=== PATIENT | male | born 1950 | race Caucasian/White ===

== ENCOUNTER 2017-10-02 18:58 | Inpatient (IN) | payer MEDICARE, OTHER ==
[2017-10-02] MEDS: DEXTROSE 5%-0.9% NACL 1,000 ML IV (20:45)
[2017-10-02] MEDS ORDERED: ALBUMIN HUMAN 25% 100 ML IVPB (22:30)
[2017-10-02] MEDS ORDERED: ACETAMINOPHEN 650 MG SUPP PR (22:30)
[2017-10-02] MEDS ORDERED: ACETAMINOPHEN 650MG/20.3ML CUP PEG (22:30)
[2017-10-02] MEDS: SENNA TAB GTB (22:54)
[2017-10-02] MEDS ORDERED: ONDANSETRON 4 MG INJ IV (23:00)
[2017-10-02] MEDS ORDERED: VANCOMYCIN IV PER PHARMACY XX (23:00)
[2017-10-02] MEDS ORDERED: NYSTATIN 30 GM POWDER BTL TOP (23:00)
[2017-10-02 23:23] LABS: ADD MAN DIFF? NO
[2017-10-02 23:24] LABS: WHITE BLOOD COUNT 9.2 10^3/ul (4.8-10.8)
[2017-10-02 23:24] LABS: BASOPHILS % 0.4 % (0.0-2.0); EOSINOPHILS # 0.5 10^3/ul (0.0-0.5); EOSINOPHILS % 5.1 % (0.0-7.0); HEMATOCRIT 24.9 % (42.0-52.0); HEMOGLOBIN 7.7 g/dl (14.0-18.0); LYMPHOCYTES # 0.9 10^3/ul (0.8-2.9); LYMPHOCYTES % 9.7 % (15.0-51.0); MEAN CORPUSCULAR HEMOGLOBIN 29.8 pg (29.0-33.0); MEAN CORPUSCULAR HGB CONC 30.9 g/dl (32.0-37.0); MEAN CORPUSCULAR VOLUME 96.5 fl (82.0-101.0); MEAN PLATELET VOLUME 9.9 fl (7.4-10.4); MONOCYTE # 0.7 10^3/ul (0.3-0.9); MONOCYTES % 7.1 % (0.0-11.0); NEUTROPHILS % 76.7 % (39.0-77.0); PLATELET COUNT 156 10^3/UL (140-415); RED BLOOD COUNT 2.58 10^6/ul (4.70-6.10); RED CELL DISTRIBUTION WIDTH 19.8 % (11.5-14.5)
[2017-10-02] MEDS ORDERED: HYDROCODONE/APAP (5/325) TAB GTB (23:30)
[2017-10-02] MEDS: QUETIAPINE 25 MG TAB GTB (23:30)
[2017-10-02] MEDS: NYSTATIN 30 GM POWDER BTL TOP ×3 (23:30)
[2017-10-03] MEDS: MIDODRINE 5 MG TAB GTB ×4 (00:28→21:50)
[2017-10-03] MEDS: METOCLOPRAMIDE 10 MG INJ IV ×4 (01:19→18:00)
[2017-10-03 02:00] LABS: IMMEDIATE SPIN CROSSMATCH 1 1
[2017-10-03 03:35] LABS: Allen Test ACCEPTAB; Arterial Base Excess -4.9 mmol/L (-3.0-3); Arterial Blood Gas Oxygen Sat 69.1 mmHG (95.0-98.0); Arterial COHb 1.4 % (0.0-3.0); Arterial Fraction of Oxyhgb 67.9 % (93.0-99.0); Arterial HCO3 20.9 mmol/L (22.0-26.0); Arterial MetHb 0.4 % (0.0-1.5); Arterial Total Hemglobin 7.2 g/dl (12.0-18.0); Arterial pCO2 41.9 mmhg (35-45); MODE VENT - AC; Site Right Radial
[2017-10-03 05:49] LABS: ADD MAN DIFF? NO
[2017-10-03 06:01] LABS: WHITE BLOOD COUNT 9.2 10^3/ul (4.8-10.8)
[2017-10-03 06:01] LABS: BASOPHIL # 0.1 10^3/ul (0.0-0.1); BASOPHILS % 0.5 % (0.0-2.0); EOSINOPHILS # 0.5 10^3/ul (0.0-0.5); EOSINOPHILS % 5.5 % (0.0-7.0); HEMATOCRIT 26.7 % (42.0-52.0); HEMOGLOBIN 8.4 g/dl (14.0-18.0); LYMPHOCYTES # 1.1 10^3/ul (0.8-2.9); LYMPHOCYTES % 12.2 % (15.0-51.0); MEAN CORPUSCULAR HEMOGLOBIN 29.8 pg (29.0-33.0); MEAN CORPUSCULAR HGB CONC 31.5 g/dl (32.0-37.0); MEAN CORPUSCULAR VOLUME 94.7 fl (82.0-101.0); MEAN PLATELET VOLUME 10.8 fl (7.4-10.4); MONOCYTE # 0.7 10^3/ul (0.3-0.9); MONOCYTES % 7.1 % (0.0-11.0); NEUTROPHIL # 6.8 10^3/ul (1.6-7.5); NEUTROPHILS % 73.5 % (39.0-77.0); PLATELET COUNT 179 10^3/UL (140-415); RED BLOOD COUNT 2.82 10^6/ul (4.70-6.10); RED CELL DISTRIBUTION WIDTH 19.4 % (11.5-14.5)
[2017-10-03] MEDS: PANTOPRAZOLE 40 MG INJ IV ×2 (06:02→18:00)
[2017-10-03] MEDS: ACCU-CHEK XX ×3 (06:05→18:00)
[2017-10-03 06:15] LABS: INR 1.73; PROTIME 20.6 Sec (11.9-14.9); PT RATIO 1.6
[2017-10-03 06:16] LABS: PARTIAL THROMBOPLASTIN TIME 47.5 Sec (25.0-35.0)
[2017-10-03 06:32] LABS: VANCOMYCIN,RANDOM 14.8 ug/ml
[2017-10-03 06:46] LABS: ANION GAP 22 (8-16); BLOOD UREA NITROGEN 66 mg/dl (7-20); CARBON DIOXIDE 25 mmol/L (21-31); CHLORIDE 99 mmol/L (97-110); CREATININE 3.85 mg/dl (0.61-1.24); GLUCOSE 85 mg/dl (70-220); POTASSIUM 4.8 mmol/L (3.5-5.1); SODIUM 141 mmol/L (135-144)
[2017-10-03] MEDS: PEG/ELECTROLYTES 4L BTL GTB (07:35)
[2017-10-03] MEDS: SOD CHLORIDE 0.9% 1,000 ML IV (08:00)
[2017-10-03 08:40] LABS: ALANINE AMINOTRANSFERASE 21 IU/L (13-69); ALBUMIN 3.4 g/dl (3.3-4.9); ALKALINE PHOSPHATASE 82 IU/L (42-121); ASPARTATE AMINO TRANSFERASE 23 IU/L (15-46); BILIRUBIN,INDIRECT 0.1 mg/dl (0-1.1); BILIRUBIN,TOTAL 0.1 mg/dl (0.2-1.3); TOTAL PROTEIN 7.2 g/dl (6.1-8.1)
[2017-10-03] MEDS ORDERED: NYSTATIN 30 GM POWDER BTL TOP (09:00)
[2017-10-03 09:01] LABS: AADO2 Arterial 137.3 mmHg (7.0-24.0); Allen Test ACCEPTAB; Arterial Base Excess -0.7 mmol/L (-3.0-3); Arterial Blood Gas Oxygen Sat 70.6 mmHG (95.0-98.0); Arterial COHb 0.9 % (0.0-3.0); Arterial Fraction of Oxyhgb 69.7 % (93.0-99.0); Arterial HCO3 23.2 mmol/L (22.0-26.0); Arterial MetHb 0.4 % (0.0-1.5); Arterial Total Hemglobin 8.1 g/dl (12.0-18.0); Arterial pCO2 34.7 mmhg (35-45); MODE VENT - AC; Site Right Brachial
[2017-10-03] MEDS: DEXTROSE 5%-0.9% NACL 1,000 ML IV ×2 (10:00→23:02)
[2017-10-03 10:55] LABS: HEMATOCRIT 27.4 % (42.0-52.0); HEMOGLOBIN 8.6 g/dl (14.0-18.0)
[2017-10-03] MEDS: MULTIVIT/CA CARB/B CMPLX/FA TAB GTB (11:00)
[2017-10-03 11:07] LABS: AADO2 Arterial 217.2 mmHg (7.0-24.0); Arterial Base Excess -2.8 mmol/L (-3.0-3); Arterial Blood Gas Oxygen Sat 99.7 mmHG (95.0-98.0); Arterial COHb 0.7 % (0.0-3.0); Arterial Fraction of Oxyhgb 98.6 % (93.0-99.0); Arterial HCO3 21.7 mmol/L (22.0-26.0); Arterial MetHb 0.4 % (0.0-1.5); Arterial Total Hemglobin 8.6 g/dl (12.0-18.0); Arterial pCO2 36.2 mmhg (35-45); MODE VENT - AC; Site A-Line
[2017-10-03] MEDS: DOCUSATE SODIUM 10 MG/ML (10ML CUP) GTB ×3 (11:41→21:00)
[2017-10-03] MEDS: NYSTATIN 30 GM POWDER BTL TOP ×6 (11:43→21:49)
[2017-10-03] MEDS: CEFEPIME HCL IVPB (12:00)
[2017-10-03] MEDS: DEXTROSE 5% IVPB (12:00)
[2017-10-03 12:32] LABS: HEMATOCRIT 28.1 % (42.0-52.0); HEMOGLOBIN 8.8 g/dl (14.0-18.0)
[2017-10-03] MEDS: VANCOMYCIN 1 GM 250 ML IVPB (14:15)
[2017-10-03] MEDS: EPOETIN 10000 UNITS/1 ML INJ (ESRD) SC (18:00)
[2017-10-03] MEDS ORDERED: PENDING SANTYL ORDER FOR WOUND CARE XX (20:00)
[2017-10-03 20:07] LABS: HEMATOCRIT 28.4 % (42.0-52.0)
[2017-10-03] MEDS: SENNA TAB GTB (21:00)
[2017-10-03] MEDS: QUETIAPINE 25 MG TAB GTB (21:50)
[2017-10-04] MEDS: ACCU-CHEK XX ×4 (00:09→18:50)
[2017-10-04] MEDS: METOCLOPRAMIDE 10 MG INJ IV ×4 (00:09→18:53)
[2017-10-04 00:46] LABS: HEMOGLOBIN 8.7 g/dl (14.0-18.0)
[2017-10-04] MEDS: HYDROCODONE/APAP (10/325) TAB GTB (02:57)
[2017-10-04] MEDS: MIDODRINE 5 MG TAB GTB ×3 (05:57→21:14)
[2017-10-04] MEDS: PANTOPRAZOLE 40 MG INJ IV ×2 (05:57→18:53)
[2017-10-04 07:14] LABS: ANION GAP 25 (8-16); BLOOD UREA NITROGEN 65 mg/dl (7-20); CARBON DIOXIDE 22 mmol/L (21-31); CHLORIDE 99 mmol/L (97-110); CREATININE 4.33 mg/dl (0.61-1.24); GLUCOSE 113 mg/dl (70-220); MAGNESIUM 2.1 mg/dl (1.7-2.5); PHOSPHORUS 4.8 mg/dl (2.5-4.9); POTASSIUM 4.7 mmol/L (3.5-5.1); SODIUM 141 mmol/L (135-144)
[2017-10-04 07:25] LABS: ADD MAN DIFF? NO
[2017-10-04 07:27] LABS: BASOPHILS % 0.4 % (0.0-2.0); EOSINOPHILS # 0.4 10^3/ul (0.0-0.5); EOSINOPHILS % 3.4 % (0.0-7.0); HEMATOCRIT 25.8 % (42.0-52.0); HEMOGLOBIN 8.4 g/dl (14.0-18.0); LYMPHOCYTES # 1.2 10^3/ul (0.8-2.9); LYMPHOCYTES % 10.9 % (15.0-51.0); MEAN CORPUSCULAR HEMOGLOBIN 30.9 pg (29.0-33.0); MEAN CORPUSCULAR HGB CONC 32.6 g/dl (32.0-37.0); MEAN CORPUSCULAR VOLUME 94.9 fl (82.0-101.0); MEAN PLATELET VOLUME 10.4 fl (7.4-10.4); MONOCYTE # 0.8 10^3/ul (0.3-0.9); MONOCYTES % 7.1 % (0.0-11.0); NEUTROPHIL # 8.5 10^3/ul (1.6-7.5); NEUTROPHILS % 77.3 % (39.0-77.0); PLATELET COUNT 199 10^3/UL (140-415); RED BLOOD COUNT 2.72 10^6/ul (4.70-6.10); RED CELL DISTRIBUTION WIDTH 19.2 % (11.5-14.5)
[2017-10-04 07:27] LABS: WHITE BLOOD COUNT 10.9 10^3/ul (4.8-10.8)
[2017-10-04] MEDS: NYSTATIN 30 GM POWDER BTL TOP ×6 (09:51→21:13)
[2017-10-04] MEDS: MULTIVIT/CA CARB/B CMPLX/FA TAB GTB (09:51)
[2017-10-04] MEDS: DOCUSATE SODIUM 10 MG/ML (10ML CUP) GTB ×2 (09:51→21:14)
[2017-10-04] MEDS: DEXTROSE 5% IVPB (12:00)
[2017-10-04] MEDS: DEXTROSE 5%-0.9% NACL 1,000 ML IV (12:00)
[2017-10-04] MEDS: CEFEPIME HCL IVPB (12:00)
[2017-10-04 12:09] LABS: HEMATOCRIT 27.6 % (42.0-52.0); HEMOGLOBIN 8.9 g/dl (14.0-18.0)
[2017-10-04] MEDS: PIPER-TAZO 2.25 GM (PMX) 50 ML IVPB ×2 (13:53→21:13)
[2017-10-04] MEDS ORDERED: NORepinephrine 8MG/250 ML (PMX 250 ML (14:21)
[2017-10-04] MEDS ORDERED: NORepinephrine 8MG/250 ML (PMX 250 ML IV (14:30)
[2017-10-04] MEDS ORDERED: ROCURONIUM 50 MG INJ (15:32)
[2017-10-04] MEDS: VASOPRESSIN 60 UNIT in DEXTROSE 5% 57 ML IV ×2 (16:30→22:02)
[2017-10-04] MEDS ORDERED: FENTAnyl (DRIP) 1000 mcg/100mL 100 ML IV (16:37)
[2017-10-04] MEDS ORDERED: PHENYLephrine 20MG IN 250 ML 250 ML (16:38)
[2017-10-04] MEDS ORDERED: MIDAZOLAM 1 MG/ML 2 ML INJ (16:59)
[2017-10-04] MEDS: PHENYLephrine 40 MG in DEXTROSE 5% 496 ML IV ×3 (17:01→23:36)
[2017-10-04] MEDS: FENTAnyl (DRIP) 1000 mcg/100mL 100 ML IV (17:04)
[2017-10-04 17:11] LABS: AADO2 Arterial 526.7 mmHg (7.0-24.0); Arterial Base Excess -2.3 mmol/L (-3.0-3); Arterial Blood Gas Oxygen Sat 97.9 mmHG (95.0-98.0); Arterial COHb 0.5 % (0.0-3.0); Arterial Fraction of Oxyhgb 97.2 % (93.0-99.0); Arterial HCO3 25.1 mmol/L (22.0-26.0); Arterial MetHb 0.2 % (0.0-1.5); Arterial Total Hemglobin 10.7 g/dl (12.0-18.0); Arterial pCO2 56.3 mmhg (35-45); MODE VENT - AC; Site A-Line
[2017-10-04] MEDS ORDERED: NA BICARBONATE 8.4% 50 ML SYG (17:37)
[2017-10-04] MEDS: NA BICARBONATE 8.4% 50 ML SYG IV (17:42)
[2017-10-04] MEDS ORDERED: EPHEDrine SULFATE 50 MG/5 ML SYG (17:44)
[2017-10-04 18:44] LABS: HEMATOCRIT 31.6 % (42.0-52.0); HEMOGLOBIN 9.7 g/dl (14.0-18.0)
[2017-10-04] MEDS: COLISTIMETHATE (25 MG/ML INHAL SYG) NEB (20:57)
[2017-10-04] MEDS: SENNA TAB GTB (21:14)
[2017-10-04] MEDS: QUETIAPINE 25 MG TAB GTB (21:14)
[2017-10-04 22:32] LABS: AADO2 Arterial 357.2 mmHg (7.0-24.0); Arterial Base Excess -1.4 mmol/L (-3.0-3); Arterial Blood Gas Oxygen Sat 95.4 mmHG (95.0-98.0); Arterial COHb 0.4 % (0.0-3.0); Arterial Fraction of Oxyhgb 94.9 % (93.0-99.0); Arterial HCO3 25.5 mmol/L (22.0-26.0); Arterial MetHb 0.1 % (0.0-1.5); Arterial Total Hemglobin 10.5 g/dl (12.0-18.0); Arterial pCO2 53.1 mmhg (35-45); MODE VENT - AC; Site A-Line
[2017-10-04] MEDS ORDERED: SOD CHLORIDE 0.9% 1,000 ML IV (23:00)
[2017-10-04] MEDS: SOD CHLORIDE 0.9% 500 ML IV (23:40)
[2017-10-05] MEDS: SOD CHLORIDE 0.9% 500 ML IV (00:12)
[2017-10-05] MEDS: METOCLOPRAMIDE 10 MG INJ IV ×4 (00:30→17:40)
[2017-10-05] MEDS: ACCU-CHEK XX ×4 (00:30→17:41)
[2017-10-05 01:00] LABS: HEMATOCRIT 30.2 % (42.0-52.0); HEMOGLOBIN 9.2 g/dl (14.0-18.0)
[2017-10-05] MEDS: PHENYLephrine 40 MG in DEXTROSE 5% 496 ML IV ×2 (01:38→04:17)
[2017-10-05 05:39] LABS: WHITE BLOOD COUNT 31.2 10^3/ul (4.8-10.8)
[2017-10-05 05:39] LABS: ABNORMAL IP MESSAGE 1; HEMATOCRIT 29.6 % (42.0-52.0); HEMOGLOBIN 9.2 g/dl (14.0-18.0); MEAN CORPUSCULAR HEMOGLOBIN 30.2 pg (29.0-33.0); MEAN CORPUSCULAR HGB CONC 31.1 g/dl (32.0-37.0); MEAN PLATELET VOLUME 10.1 fl (7.4-10.4); NUCLEATED RED BLOOD CELLS% 0.1 /100WBC (0.0-0.0); PLATELET COUNT 252 10^3/UL (140-415); POSITIVE DIFF @See below; RED BLOOD COUNT 3.05 10^6/ul (4.70-6.10); RED CELL DISTRIBUTION WIDTH 18.8 % (11.5-14.5)
[2017-10-05 06:22] LABS: ADD MAN DIFF? YES
[2017-10-05 06:26] LABS: ANION GAP 20 (8-16); BLOOD UREA NITROGEN 36 mg/dl (7-20); CALCIUM 8.3 mg/dl (8.4-10.2); CARBON DIOXIDE 23 mmol/L (21-31); CHLORIDE 99 mmol/L (97-110); GLUCOSE 242 mg/dl (70-220); SODIUM 138 mmol/L (135-144)
[2017-10-05] MEDS: DEXTROSE 5%-0.9% NACL 1,000 ML IV (06:41)
[2017-10-05] MEDS: MIDODRINE 5 MG TAB GTB ×3 (06:41→21:06)
[2017-10-05] MEDS: PIPER-TAZO 2.25 GM (PMX) 50 ML IVPB ×3 (06:47→21:05)
[2017-10-05] MEDS: PANTOPRAZOLE 40 MG INJ IV ×2 (06:47→17:40)
[2017-10-05 07:54] LABS: ANISOCYTOSIS 1+ (0-0); BAND NEUTROPHILS #M 8.7 10^3/ul (0.0-0.6); BAND NEUTROPHILS % (M) 28 % (0-4); EOSINOPHILS % (M) 1 % (0-7); LYMPHOCYTES #M 1.8 10^3/ul (0.8-2.9); LYMPHOCYTES % (M) 6 % (15-51); MICROCYTOSIS 1+ (0-0); MONOCYTE #M 0.6 10^3/ul (0.3-0.9); MONOCYTES % (M) 2 % (0-11); PLATELET ESTIMATE NORMAL; POLYCHROMASIA 2+ (0-0); RBC MORPHOLOGY COMMENT @See below; SEG NEUT #M 22.4 10^3/ul (1.6-7.5); SEGMENTED NEUTROPHILS (M) % 63 % (39-77); SMUDGE%M 3 % (0-0); WBC MORPHOLOGY COMMENT @See below
[2017-10-05 08:28] LABS: AADO2 Arterial 292.9 mmHg (7.0-24.0); Arterial Base Excess -5.3 mmol/L (-3.0-3); Arterial Blood Gas Oxygen Sat 98.8 mmHG (95.0-98.0); Arterial COHb 0.2 % (0.0-3.0); Arterial Fraction of Oxyhgb 98.4 % (93.0-99.0); Arterial HCO3 21.7 mmol/L (22.0-26.0); Arterial MetHb 0.2 % (0.0-1.5); Arterial Total Hemglobin 10.2 g/dl (12.0-18.0); Arterial pCO2 49.2 mmhg (35-45); MODE VENT - AC; Site A-Line
[2017-10-05] MEDS: MULTIVIT/CA CARB/B CMPLX/FA TAB GTB (08:50)
[2017-10-05] MEDS: DOCUSATE SODIUM 10 MG/ML (10ML CUP) GTB ×2 (08:50→20:52)
[2017-10-05] MEDS: NYSTATIN 30 GM POWDER BTL TOP ×6 (08:50→20:54)
[2017-10-05] MEDS: FENTAnyl (DRIP) 1000 mcg/100mL 100 ML IV (08:53)
[2017-10-05] MEDS: VASOPRESSIN 60 UNIT in DEXTROSE 5% 57 ML IV (08:54)
[2017-10-05] MEDS: NORepinephrine 32 MG in SOD CHLORIDE 0.9% 218 ML IV (08:55)
[2017-10-05] MEDS: PHENYLephrine 160 MG in SOD CHLORIDE 0.9% 484 ML IV (08:56)
[2017-10-05] MEDS ORDERED: CEFEPIME 1GM/50 ML IVPB (09:00)
[2017-10-05] MEDS: COLISTIMETHATE (25 MG/ML INHAL SYG) NEB ×2 (09:06→19:54)
[2017-10-05] MEDS ORDERED: GLUCOSE GEL 15 GRAM TUBE BUCCAL (10:30)
[2017-10-05] MEDS ORDERED: GLUCOSE GEL 15 GRAM TUBE PO ×2 (10:30)
[2017-10-05] MEDS ORDERED: GLUCAGON 1 MG INJ IM (10:30)
[2017-10-05] MEDS ORDERED: DEXTROSE 50% 50 ML SYRINGE IV (10:30)
[2017-10-05] MEDS: SOD CHLORIDE 0.9% 1,000 ML IV (11:02)
[2017-10-05] MEDS: HYDROCORTISONE 100 MG INJ IV ×2 (11:02→17:40)
[2017-10-05] MEDS: INSULIN ASPART [NOVOLOG] 3 ML PEN SC ×3 (12:32→21:00)
[2017-10-05 13:15] LABS: HEMATOCRIT 29.2 % (42.0-52.0); HEMOGLOBIN 9.2 g/dl (14.0-18.0)
[2017-10-05] MEDS ORDERED: PHENYLephrine 160 MG in SOD CHLORIDE 0.9% 484 ML IV (13:30)
[2017-10-05] MEDS ORDERED: AMIKACIN IV PER PHARMACY XX (18:00)
[2017-10-05] MEDS: AMIKACIN 600 MG in DEXTROSE 5% 100 ML IVPB (20:52)
[2017-10-05] MEDS: VANCOMYCIN HCL 250 MG/5ML POSYG PEG (20:52)
[2017-10-05] MEDS: SENNA TAB GTB (20:53)
[2017-10-05] MEDS: QUETIAPINE 25 MG TAB GTB (20:53)
[2017-10-06] MEDS: INSULIN ASPART [NOVOLOG] 3 ML PEN SC ×6 (01:00→21:00)
[2017-10-06] MEDS: METOCLOPRAMIDE 10 MG INJ IV ×4 (01:52→17:38)
[2017-10-06] MEDS: FENTAnyl (DRIP) 1000 mcg/100mL 100 ML IV (01:52)
[2017-10-06] MEDS: ACCU-CHEK XX ×5 (01:53→17:49)
[2017-10-06] MEDS: VASOPRESSIN 60 UNIT in DEXTROSE 5% 57 ML IV ×2 (04:30→16:30)
[2017-10-06 05:26] LABS: AADO2 Arterial 104.3 mmHg (7.0-24.0); Arterial Base Excess -2.9 mmol/L (-3.0-3); Arterial COHb 0.4 % (0.0-3.0); Arterial Fraction of Oxyhgb 98.6 % (93.0-99.0); Arterial HCO3 20.7 mmol/L (22.0-26.0); Arterial MetHb 0 % (0.0-1.5); Arterial Total Hemglobin 10.9 g/dl (12.0-18.0); Arterial pCO2 31.9 mmhg (35-45); MODE VENT - AC; Site A-Line
[2017-10-06 05:37] LABS: ADD MAN DIFF? NO
[2017-10-06 05:46] LABS: WHITE BLOOD COUNT 24.2 10^3/ul (4.8-10.8)
[2017-10-06 05:46] LABS: ABNORMAL IP MESSAGE 1; BASOPHILS % 0.2 % (0.0-2.0); EOSINOPHILS # 0.4 10^3/ul (0.0-0.5); EOSINOPHILS % 1.5 % (0.0-7.0); HEMATOCRIT 26.2 % (42.0-52.0); HEMOGLOBIN 8.3 g/dl (14.0-18.0); LYMPHOCYTES # 0.5 10^3/ul (0.8-2.9); LYMPHOCYTES % 1.9 % (15.0-51.0); MEAN CORPUSCULAR HEMOGLOBIN 29.9 pg (29.0-33.0); MEAN CORPUSCULAR HGB CONC 31.7 g/dl (32.0-37.0); MEAN CORPUSCULAR VOLUME 94.2 fl (82.0-101.0); MEAN PLATELET VOLUME 10.2 fl (7.4-10.4); MONOCYTE # 0.4 10^3/ul (0.3-0.9); MONOCYTES % 1.7 % (0.0-11.0); NEUTROPHIL # 22.7 10^3/ul (1.6-7.5); NEUTROPHILS % 93.8 % (39.0-77.0); PLATELET COUNT 157 10^3/UL (140-415); POSITIVE DIFF @See below; RED BLOOD COUNT 2.78 10^6/ul (4.70-6.10); RED CELL DISTRIBUTION WIDTH 18.5 % (11.5-14.5)
[2017-10-06] MEDS: SOD CHLORIDE 0.9% 1,000 ML IV ×2 (05:49→14:57)
[2017-10-06] MEDS: HYDROCORTISONE 100 MG INJ IV ×3 (05:50→21:51)
[2017-10-06] MEDS: PIPER-TAZO 2.25 GM (PMX) 50 ML IVPB (05:50)
[2017-10-06] MEDS: PANTOPRAZOLE 40 MG INJ IV ×2 (05:52→17:38)
[2017-10-06] MEDS: MIDODRINE 5 MG TAB GTB ×3 (05:52→21:57)
[2017-10-06] MEDS: VANCOMYCIN HCL 250 MG/5ML POSYG PEG ×2 (05:59)
[2017-10-06 06:37] LABS: VANCOMYCIN,RANDOM 14.5 ug/ml
[2017-10-06 06:40] LABS: ALBUMIN/GLOBULIN RATIO 0.93; ANION GAP 23 (8-16)
[2017-10-06 06:41] LABS: PHOSPHORUS 4.9 mg/dl (2.5-4.9)
[2017-10-06 06:41] LABS: MAGNESIUM 1.8 mg/dl (1.7-2.5)
[2017-10-06 06:45] LABS: ANISOCYTOSIS 2+ (0-0); BAND NEUTROPHILS #M 1.4 10^3/ul (0.0-0.6); BAND NEUTROPHILS % (M) 6 % (0-4); EOSINOPHILS % (M) 3 % (0-7); LYMPHOCYTES #M 0.2 10^3/ul (0.8-2.9); LYMPHOCYTES % (M) 1 % (15-51); MICROCYTOSIS 1+ (0-0); MONOCYTE #M 0.2 10^3/ul (0.3-0.9); MONOCYTES % (M) 1 % (0-11); PLATELET ESTIMATE NORMAL; POLYCHROMASIA 1+ (0-0); SEG NEUT #M 21.9 10^3/ul (1.6-7.5); SEGMENTED NEUTROPHILS (M) % 89 % (39-77); SPHEROCYTES 1+ (0-0)
[2017-10-06 06:54] LABS: ALANINE AMINOTRANSFERASE 24 IU/L (13-69); ALBUMIN 3.1 g/dl (3.3-4.9); ALKALINE PHOSPHATASE 79 IU/L (42-121); ASPARTATE AMINO TRANSFERASE 20 IU/L (15-46); BILIRUBIN,INDIRECT 0.1 mg/dl (0-1.1); BILIRUBIN,TOTAL 0.1 mg/dl (0.2-1.3); BLOOD UREA NITROGEN 41 mg/dl (7-20); CALCIUM 8.9 mg/dl (8.4-10.2); CARBON DIOXIDE 20 mmol/L (21-31); CHLORIDE 100 mmol/L (97-110); CREATININE 3.59 mg/dl (0.61-1.24); GLUCOSE 146 mg/dl (70-220); POTASSIUM 4.6 mmol/L (3.5-5.1); SODIUM 138 mmol/L (135-144); TOTAL PROTEIN 6.4 g/dl (6.1-8.1)
[2017-10-06] MEDS: MULTIVIT/CA CARB/B CMPLX/FA TAB GTB (08:25)
[2017-10-06] MEDS: NYSTATIN 30 GM POWDER BTL TOP ×6 (08:25→21:51)
[2017-10-06] MEDS: DOCUSATE SODIUM 10 MG/ML (10ML CUP) GTB ×2 (08:25→21:50)
[2017-10-06] MEDS: NORepinephrine 32 MG in SOD CHLORIDE 0.9% 218 ML IV (08:36)
[2017-10-06] MEDS ORDERED: AMIKACIN 400 MG in DEXTROSE 5% 100 ML IVPB (09:00)
[2017-10-06] MEDS: COLISTIMETHATE (25 MG/ML INHAL SYG) NEB ×2 (09:41→21:03)
[2017-10-06] MEDS ORDERED: VANCOMYCIN IV PER PHARMACY XX (11:30)
[2017-10-06] MEDS: HYDROCODONE/APAP (10/325) TAB GTB (14:58)
[2017-10-06] MEDS: COLLAGENASE 30 GM TUBE TOP (17:38)
[2017-10-06] MEDS: SENNA TAB GTB (21:50)
[2017-10-06] MEDS: QUETIAPINE 25 MG TAB GTB (21:50)
[2017-10-06] MEDS: CEFTAZIDIME 1GM/50 ML (PMX) 50 ML IVPB (21:50)
[2017-10-06] MEDS: VANCOMYCIN 1 GM 250 ML IVPB (21:52)
[2017-10-06] MEDS: EPOETIN 10000 UNITS/1 ML INJ (ESRD) SC (21:54)
[2017-10-07] MEDS: ACCU-CHEK XX ×5 (00:11→17:40)
[2017-10-07] MEDS: METOCLOPRAMIDE 10 MG INJ IV ×4 (00:42→17:40)
[2017-10-07] MEDS: INSULIN ASPART [NOVOLOG] 3 ML PEN SC ×6 (00:44→20:29)
[2017-10-07] MEDS: VASOPRESSIN 60 UNIT in DEXTROSE 5% 57 ML IV ×2 (04:30→13:00)
[2017-10-07] MEDS: PANTOPRAZOLE 40 MG INJ IV ×2 (05:35→17:40)
[2017-10-07] MEDS: SOD CHLORIDE 0.9% 1,000 ML IV (05:35)
[2017-10-07] MEDS: MIDODRINE 5 MG TAB GTB ×3 (05:36→21:03)
[2017-10-07] MEDS: HYDROCORTISONE 100 MG INJ IV ×3 (05:36→21:04)
[2017-10-07 05:44] LABS: ADD MAN DIFF? NO
[2017-10-07 05:45] LABS: BASOPHILS % 0.1 % (0.0-2.0); EOSINOPHILS # 0.3 10^3/ul (0.0-0.5); HEMATOCRIT 24.7 % (42.0-52.0); HEMOGLOBIN 7.8 g/dl (14.0-18.0); LYMPHOCYTES # 0.6 10^3/ul (0.8-2.9); LYMPHOCYTES % 3.6 % (15.0-51.0); MEAN CORPUSCULAR HEMOGLOBIN 30.4 pg (29.0-33.0); MEAN CORPUSCULAR HGB CONC 31.6 g/dl (32.0-37.0); MEAN CORPUSCULAR VOLUME 96.1 fl (82.0-101.0); MONOCYTE # 0.4 10^3/ul (0.3-0.9); MONOCYTES % 2.5 % (0.0-11.0); NEUTROPHIL # 15.4 10^3/ul (1.6-7.5); NEUTROPHILS % 91.1 % (39.0-77.0); PLATELET COUNT 121 10^3/UL (140-415); RED BLOOD COUNT 2.57 10^6/ul (4.70-6.10); RED CELL DISTRIBUTION WIDTH 18.7 % (11.5-14.5)
[2017-10-07 05:45] LABS: WHITE BLOOD COUNT 16.9 10^3/ul (4.8-10.8)
[2017-10-07 06:05] LABS: ANION GAP 23 (8-16); BLOOD UREA NITROGEN 28 mg/dl (7-20); CARBON DIOXIDE 25 mmol/L (21-31); CHLORIDE 99 mmol/L (97-110); CREATININE 2.63 mg/dl (0.61-1.24); GLUCOSE 108 mg/dl (70-220); MAGNESIUM 1.8 mg/dl (1.7-2.5); PHOSPHORUS 3.6 mg/dl (2.5-4.9); POTASSIUM 3.7 mmol/L (3.5-5.1); SODIUM 143 mmol/L (135-144)
[2017-10-07] MEDS: HYDROCODONE/APAP (10/325) TAB GTB ×2 (07:35→13:21)
[2017-10-07] MEDS: MULTIVIT/CA CARB/B CMPLX/FA TAB GTB (07:35)
[2017-10-07] MEDS: NYSTATIN 30 GM POWDER BTL TOP ×6 (07:35→20:27)
[2017-10-07] MEDS: DOCUSATE SODIUM 10 MG/ML (10ML CUP) GTB ×2 (07:35→20:16)
[2017-10-07] MEDS: COLLAGENASE 30 GM TUBE TOP (07:36)
[2017-10-07] MEDS: COLISTIMETHATE (25 MG/ML INHAL SYG) NEB ×2 (12:19→20:09)
[2017-10-07] MEDS: CEFTAZIDIME 1GM/50 ML (PMX) 50 ML IVPB (13:22)
[2017-10-07 13:46] LABS: HEMATOCRIT 24.8 % (42.0-52.0); HEMOGLOBIN 7.8 g/dl (14.0-18.0)
[2017-10-07] MEDS: DIPHENHYDRAMINE 50 MG INJ IV (15:20)
[2017-10-07] MEDS: SENNA TAB GTB (20:16)
[2017-10-07] MEDS: QUETIAPINE 25 MG TAB GTB (20:27)
[2017-10-08] MEDS: INSULIN ASPART [NOVOLOG] 3 ML PEN SC ×5 (00:48→23:29)
[2017-10-08] MEDS: METOCLOPRAMIDE 10 MG INJ IV ×6 (00:48→23:29)
[2017-10-08] MEDS: ACCU-CHEK XX (00:49)
[2017-10-08] MEDS: VASOPRESSIN 60 UNIT in DEXTROSE 5% 57 ML IV ×2 (04:30→16:21)
[2017-10-08 05:47] LABS: ADD MAN DIFF? NO
[2017-10-08 05:51] LABS: BASOPHILS % 0.1 % (0.0-2.0); EOSINOPHILS # 0.2 10^3/ul (0.0-0.5); EOSINOPHILS % 1.3 % (0.0-7.0); HEMATOCRIT 26.6 % (42.0-52.0); LYMPHOCYTES # 0.8 10^3/ul (0.8-2.9); LYMPHOCYTES % 5.3 % (15.0-51.0); MEAN CORPUSCULAR HEMOGLOBIN 29.4 pg (29.0-33.0); MEAN CORPUSCULAR HGB CONC 30.1 g/dl (32.0-37.0); MEAN CORPUSCULAR VOLUME 97.8 fl (82.0-101.0); MEAN PLATELET VOLUME 10.5 fl (7.4-10.4); MONOCYTE # 0.4 10^3/ul (0.3-0.9); MONOCYTES % 2.6 % (0.0-11.0); NEUTROPHIL # 13.4 10^3/ul (1.6-7.5); NEUTROPHILS % 89.7 % (39.0-77.0); NUCLEATED RED BLOOD CELLS% 0.1 /100WBC (0.0-0.0); PLATELET COUNT 123 10^3/UL (140-415); RED BLOOD COUNT 2.72 10^6/ul (4.70-6.10); RED CELL DISTRIBUTION WIDTH 18.8 % (11.5-14.5)
[2017-10-08] MEDS: HYDROCORTISONE 100 MG INJ IV ×3 (06:10→21:38)
[2017-10-08] MEDS: PANTOPRAZOLE 40 MG INJ IV ×2 (06:10→18:48)
[2017-10-08] MEDS: MIDODRINE 5 MG TAB GTB ×3 (06:12→21:39)
[2017-10-08 06:18] LABS: ANION GAP 23 (8-16); BLOOD UREA NITROGEN 36 mg/dl (7-20); CALCIUM 9.1 mg/dl (8.4-10.2); CARBON DIOXIDE 26 mmol/L (21-31); CHLORIDE 99 mmol/L (97-110); CREATININE 3.05 mg/dl (0.61-1.24); GLUCOSE 104 mg/dl (70-220); MAGNESIUM 1.9 mg/dl (1.7-2.5); POTASSIUM 3.7 mmol/L (3.5-5.1); SODIUM 144 mmol/L (135-144)
[2017-10-08] MEDS: COLISTIMETHATE (25 MG/ML INHAL SYG) NEB ×2 (08:57→20:02)
[2017-10-08] MEDS: MULTIVIT/CA CARB/B CMPLX/FA TAB GTB (09:19)
[2017-10-08] MEDS: DOCUSATE SODIUM 10 MG/ML (10ML CUP) GTB ×2 (09:19→21:38)
[2017-10-08] MEDS: NYSTATIN 30 GM POWDER BTL TOP ×6 (09:20→21:40)
[2017-10-08] MEDS: COLLAGENASE 30 GM TUBE TOP (09:20)
[2017-10-08] MEDS: ALBUMIN HUMAN 25% 100 ML IV (12:10)
[2017-10-08] MEDS: CEFTAZIDIME 1GM/50 ML (PMX) 50 ML IVPB (16:19)
[2017-10-08] MEDS: EPOETIN 10000 UNITS/1 ML INJ (ESRD) SC (16:21)
[2017-10-08] MEDS: HYDROCODONE/APAP (10/325) TAB GTB (18:49)
[2017-10-08] MEDS: SENNA TAB GTB (21:38)
[2017-10-08] MEDS: VORICONAZOLE 200 MG TAB PO (21:39)
[2017-10-08] MEDS: QUETIAPINE 25 MG TAB GTB (21:40)
[2017-10-09] MEDS: ACCU-CHEK XX (01:23)
[2017-10-09] MEDS: VASOPRESSIN 60 UNIT in DEXTROSE 5% 57 ML IV ×2 (01:33→16:30)
[2017-10-09] MEDS: INSULIN ASPART [NOVOLOG] 3 ML PEN SC ×4 (05:06→23:46)
[2017-10-09] MEDS: HYDROCORTISONE 100 MG INJ IV ×3 (05:07→21:15)
[2017-10-09] MEDS: METOCLOPRAMIDE 10 MG INJ IV ×4 (05:07→23:46)
[2017-10-09] MEDS: MIDODRINE 5 MG TAB GTB ×3 (05:07→21:14)
[2017-10-09] MEDS: PANTOPRAZOLE 40 MG INJ IV ×2 (05:07→18:16)
[2017-10-09 05:52] LABS: ADD MAN DIFF? NO
[2017-10-09 06:08] LABS: WHITE BLOOD COUNT 13.8 10^3/ul (4.8-10.8)
[2017-10-09 06:08] LABS: BASOPHILS % 0.1 % (0.0-2.0); EOSINOPHILS # 0.2 10^3/ul (0.0-0.5); EOSINOPHILS % 1.4 % (0.0-7.0); HEMATOCRIT 28.9 % (42.0-52.0); HEMOGLOBIN 8.8 g/dl (14.0-18.0); LYMPHOCYTES # 1.3 10^3/ul (0.8-2.9); LYMPHOCYTES % 9.2 % (15.0-51.0); MEAN CORPUSCULAR HEMOGLOBIN 29.9 pg (29.0-33.0); MEAN CORPUSCULAR HGB CONC 30.4 g/dl (32.0-37.0); MEAN CORPUSCULAR VOLUME 98.3 fl (82.0-101.0); MEAN PLATELET VOLUME 10.8 fl (7.4-10.4); MONOCYTE # 0.5 10^3/ul (0.3-0.9); MONOCYTES % 3.5 % (0.0-11.0); NEUTROPHIL # 11.7 10^3/ul (1.6-7.5); NEUTROPHILS % 84.4 % (39.0-77.0); NUCLEATED RED BLOOD CELLS # 0.1 10^3/ul (0.0-0.0); NUCLEATED RED BLOOD CELLS% 0.4 /100WBC (0.0-0.0); PLATELET COUNT 148 10^3/UL (140-415); RED BLOOD COUNT 2.94 10^6/ul (4.70-6.10); RED CELL DISTRIBUTION WIDTH 18.7 % (11.5-14.5)
[2017-10-09 06:55] LABS: ANION GAP 22 (8-16); BLOOD UREA NITROGEN 25 mg/dl (7-20); CALCIUM 9.3 mg/dl (8.4-10.2); CARBON DIOXIDE 32 mmol/L (21-31); CHLORIDE 97 mmol/L (97-110); CREATININE 2.31 mg/dl (0.61-1.24); GLUCOSE 99 mg/dl (70-220); MAGNESIUM 1.9 mg/dl (1.7-2.5); PHOSPHORUS 2.9 mg/dl (2.5-4.9); POTASSIUM 3.5 mmol/L (3.5-5.1); SODIUM 147 mmol/L (135-144)
[2017-10-09] MEDS: DOCUSATE SODIUM 10 MG/ML (10ML CUP) GTB ×2 (07:11→21:14)
[2017-10-09] MEDS: MULTIVIT/CA CARB/B CMPLX/FA TAB GTB (08:08)
[2017-10-09] MEDS: VORICONAZOLE 200 MG TAB PO ×2 (08:08→21:15)
[2017-10-09] MEDS: NYSTATIN 30 GM POWDER BTL TOP ×6 (08:09→21:16)
[2017-10-09] MEDS: COLLAGENASE 30 GM TUBE TOP (08:09)
[2017-10-09] MEDS: COLISTIMETHATE (25 MG/ML INHAL SYG) NEB ×2 (11:17→21:21)
[2017-10-09] MEDS: CEFTAZIDIME 1GM/50 ML (PMX) 50 ML IVPB (13:40)
[2017-10-09 14:52] LABS: PROCALCITONIN 1.51 ng/mL (<0.10)
[2017-10-09] MEDS: QUETIAPINE 25 MG TAB GTB (21:15)
[2017-10-09] MEDS: SENNA TAB GTB (21:15)
[2017-10-09] MEDS: DIPHENHYDRAMINE 50 MG INJ IV (21:17)
[2017-10-10] MEDS: ACCU-CHEK XX (01:55)
[2017-10-10] MEDS: VASOPRESSIN 60 UNIT in DEXTROSE 5% 57 ML IV (02:01)
[2017-10-10] MEDS: HYDROCODONE/APAP (10/325) TAB GTB (02:02)
[2017-10-10 05:38] LABS: ADD MAN DIFF? NO
[2017-10-10 05:49] LABS: BASOPHILS % 0.1 % (0.0-2.0); EOSINOPHILS # 0.1 10^3/ul (0.0-0.5); HEMATOCRIT 27.2 % (42.0-52.0); HEMOGLOBIN 8.4 g/dl (14.0-18.0); LYMPHOCYTES % 9.6 % (15.0-51.0); MEAN CORPUSCULAR HEMOGLOBIN 30.5 pg (29.0-33.0); MEAN CORPUSCULAR HGB CONC 30.9 g/dl (32.0-37.0); MEAN CORPUSCULAR VOLUME 98.9 fl (82.0-101.0); MEAN PLATELET VOLUME 10.7 fl (7.4-10.4); MONOCYTE # 0.3 10^3/ul (0.3-0.9); MONOCYTES % 2.9 % (0.0-11.0); NEUTROPHIL # 8.5 10^3/ul (1.6-7.5); NEUTROPHILS % 85.2 % (39.0-77.0); NUCLEATED RED BLOOD CELLS # 0.1 10^3/ul (0.0-0.0); NUCLEATED RED BLOOD CELLS% 0.8 /100WBC (0.0-0.0); PLATELET COUNT 102 10^3/UL (140-415); RED BLOOD COUNT 2.75 10^6/ul (4.70-6.10); RED CELL DISTRIBUTION WIDTH 18.8 % (11.5-14.5)
[2017-10-10 05:49] LABS: WHITE BLOOD COUNT 9.9 10^3/ul (4.8-10.8)
[2017-10-10] MEDS: INSULIN ASPART [NOVOLOG] 3 ML PEN SC ×4 (06:00→23:56)
[2017-10-10 06:04] LABS: ANION GAP 17 (8-16); BLOOD UREA NITROGEN 31 mg/dl (7-20); CARBON DIOXIDE 33 mmol/L (21-31); CHLORIDE 99 mmol/L (97-110); CREATININE 2.89 mg/dl (0.61-1.24); GLUCOSE 140 mg/dl (70-220); PHOSPHORUS 3.3 mg/dl (2.5-4.9); POTASSIUM 3.4 mmol/L (3.5-5.1); SODIUM 146 mmol/L (135-144)
[2017-10-10] MEDS: MIDODRINE 5 MG TAB GTB ×3 (06:10→22:24)
[2017-10-10] MEDS: PANTOPRAZOLE 40 MG INJ IV ×2 (06:10→17:30)
[2017-10-10] MEDS: HYDROCORTISONE 100 MG INJ IV ×3 (06:10→21:30)
[2017-10-10] MEDS: METOCLOPRAMIDE 10 MG INJ IV ×4 (06:11→23:56)
[2017-10-10] MEDS: COLISTIMETHATE (25 MG/ML INHAL SYG) NEB ×2 (10:05→20:19)
[2017-10-10] MEDS: MULTIVIT/CA CARB/B CMPLX/FA TAB GTB (12:49)
[2017-10-10] MEDS: VORICONAZOLE 200 MG TAB PO ×2 (12:50→21:27)
[2017-10-10] MEDS: DOCUSATE SODIUM 10 MG/ML (10ML CUP) GTB ×2 (12:51→21:26)
[2017-10-10] MEDS: POTASSIUM CHLORIDE 20 MEQ POWDER FOR ORAL SOLN GTB (12:51)
[2017-10-10] MEDS: NYSTATIN 30 GM POWDER BTL TOP ×6 (12:52→21:29)
[2017-10-10] MEDS: COLLAGENASE 30 GM TUBE TOP (12:53)
[2017-10-10] MEDS: CEFTAZIDIME 1GM/50 ML (PMX) 50 ML IVPB (12:59)
[2017-10-10 14:15] LABS: HEPATITIS B SURFACE ANTIGEN NEGATIVE (NEGATIVE)
[2017-10-10] MEDS: VANCOMYCIN 1 GM 250 ML IVPB (16:25)
[2017-10-10] MEDS: EPOETIN 10000 UNITS/1 ML INJ (ESRD) SC (16:27)
[2017-10-10] MEDS: DEXTROSE 50% 50 ML SYRINGE IV (17:36)
[2017-10-10] MEDS: QUETIAPINE 25 MG TAB GTB (21:26)
[2017-10-10] MEDS: SENNA TAB GTB (21:26)
[2017-10-11] MEDS: ACCU-CHEK XX (02:00)
[2017-10-11 04:35] LABS: ADD MAN DIFF? NO
[2017-10-11 04:44] LABS: BASOPHILS % 0.1 % (0.0-2.0); EOSINOPHILS # 0.1 10^3/ul (0.0-0.5); EOSINOPHILS % 0.7 % (0.0-7.0); HEMATOCRIT 29.6 % (42.0-52.0); HEMOGLOBIN 8.9 g/dl (14.0-18.0); LYMPHOCYTES # 1.1 10^3/ul (0.8-2.9); LYMPHOCYTES % 7.4 % (15.0-51.0); MEAN CORPUSCULAR HEMOGLOBIN 29.8 pg (29.0-33.0); MEAN CORPUSCULAR HGB CONC 30.1 g/dl (32.0-37.0); MEAN PLATELET VOLUME 10.9 fl (7.4-10.4); MONOCYTE # 0.5 10^3/ul (0.3-0.9); MONOCYTES % 3.2 % (0.0-11.0); NEUTROPHIL # 13.2 10^3/ul (1.6-7.5); NEUTROPHILS % 87.5 % (39.0-77.0); NUCLEATED RED BLOOD CELLS # 0.1 10^3/ul (0.0-0.0); NUCLEATED RED BLOOD CELLS% 0.4 /100WBC (0.0-0.0); PLATELET COUNT 136 10^3/UL (140-415); RED BLOOD COUNT 2.99 10^6/ul (4.70-6.10); RED CELL DISTRIBUTION WIDTH 19.9 % (11.5-14.5)
[2017-10-11 04:44] LABS: WHITE BLOOD COUNT 15.1 10^3/ul (4.8-10.8)
[2017-10-11] MEDS: INSULIN ASPART [NOVOLOG] 3 ML PEN SC ×3 (05:06→18:00)
[2017-10-11] MEDS: PANTOPRAZOLE 40 MG INJ IV ×2 (05:07→18:30)
[2017-10-11 05:08] LABS: ANION GAP 18 (8-16); BLOOD UREA NITROGEN 21 mg/dl (7-20); CALCIUM 9.3 mg/dl (8.4-10.2); CARBON DIOXIDE 30 mmol/L (21-31); CHLORIDE 101 mmol/L (97-110); CREATININE 2.31 mg/dl (0.61-1.24); GLUCOSE 153 mg/dl (70-220); MAGNESIUM 1.9 mg/dl (1.7-2.5); PHOSPHORUS 2.8 mg/dl (2.5-4.9); POTASSIUM 4.1 mmol/L (3.5-5.1); SODIUM 145 mmol/L (135-144)
[2017-10-11] MEDS: METOCLOPRAMIDE 10 MG INJ IV ×3 (05:08→18:30)
[2017-10-11] MEDS: HYDROCORTISONE 100 MG INJ IV ×3 (05:08→20:50)
[2017-10-11] MEDS: MIDODRINE 5 MG TAB GTB ×3 (05:09→20:50)
[2017-10-11] MEDS: COLISTIMETHATE (25 MG/ML INHAL SYG) NEB ×2 (08:33→19:25)
[2017-10-11] MEDS: MULTIVIT/CA CARB/B CMPLX/FA TAB GTB (09:36)
[2017-10-11] MEDS: VORICONAZOLE 200 MG TAB PO ×2 (09:36→20:48)
[2017-10-11] MEDS: DOCUSATE SODIUM 10 MG/ML (10ML CUP) GTB ×2 (09:36→20:48)
[2017-10-11] MEDS: NYSTATIN 30 GM POWDER BTL TOP ×6 (09:39→21:03)
[2017-10-11] MEDS: COLLAGENASE 30 GM TUBE TOP (12:14)
[2017-10-11] MEDS: CEFTAZIDIME 1GM/50 ML (PMX) 50 ML IVPB (16:15)
[2017-10-11] MEDS: DIPHENHYDRAMINE 50 MG INJ IV (17:01)
[2017-10-11] MEDS: SENNA TAB GTB (20:48)
[2017-10-11] MEDS: QUETIAPINE 25 MG TAB GTB (20:49)
[2017-10-12] MEDS: METOCLOPRAMIDE 10 MG INJ IV ×5 (01:15→23:39)
[2017-10-12] MEDS: ACCU-CHEK XX (03:00)
[2017-10-12] MEDS: PANTOPRAZOLE 40 MG INJ IV ×2 (05:15→17:13)
[2017-10-12] MEDS: HYDROCORTISONE 100 MG INJ IV ×3 (05:15→20:38)
[2017-10-12] MEDS: MIDODRINE 5 MG TAB GTB ×3 (05:15→20:37)
[2017-10-12] MEDS: INSULIN ASPART [NOVOLOG] 3 ML PEN SC ×5 (05:16→23:45)
[2017-10-12 05:38] LABS: ADD MAN DIFF? NO
[2017-10-12 05:44] LABS: BASOPHILS % 0.1 % (0.0-2.0); EOSINOPHILS # 0.1 10^3/ul (0.0-0.5); EOSINOPHILS % 0.9 % (0.0-7.0); HEMATOCRIT 28.8 % (42.0-52.0); HEMOGLOBIN 8.6 g/dl (14.0-18.0); LYMPHOCYTES # 1.1 10^3/ul (0.8-2.9); LYMPHOCYTES % 9.2 % (15.0-51.0); MEAN CORPUSCULAR HEMOGLOBIN 30.4 pg (29.0-33.0); MEAN CORPUSCULAR HGB CONC 29.9 g/dl (32.0-37.0); MEAN CORPUSCULAR VOLUME 101.8 fl (82.0-101.0); MEAN PLATELET VOLUME 11.1 fl (7.4-10.4); MONOCYTE # 0.4 10^3/ul (0.3-0.9); MONOCYTES % 3.5 % (0.0-11.0); NEUTROPHIL # 10.5 10^3/ul (1.6-7.5); NEUTROPHILS % 85.2 % (39.0-77.0); NUCLEATED RED BLOOD CELLS% 0.3 /100WBC (0.0-0.0); PLATELET COUNT 103 10^3/UL (140-415); RED BLOOD COUNT 2.83 10^6/ul (4.70-6.10); RED CELL DISTRIBUTION WIDTH 19.9 % (11.5-14.5)
[2017-10-12 05:44] LABS: WHITE BLOOD COUNT 12.3 10^3/ul (4.8-10.8)
[2017-10-12 06:08] LABS: ANION GAP 16 (8-16); BLOOD UREA NITROGEN 29 mg/dl (7-20); CARBON DIOXIDE 32 mmol/L (21-31); CHLORIDE 101 mmol/L (97-110); CREATININE 2.79 mg/dl (0.61-1.24); GLUCOSE 107 mg/dl (70-220); PHOSPHORUS 3.2 mg/dl (2.5-4.9); POTASSIUM 4.2 mmol/L (3.5-5.1); SODIUM 145 mmol/L (135-144)
[2017-10-12] MEDS: COLISTIMETHATE (25 MG/ML INHAL SYG) NEB ×2 (08:08→19:26)
[2017-10-12] MEDS: NYSTATIN 30 GM POWDER BTL TOP ×6 (08:45→20:37)
[2017-10-12] MEDS: DOCUSATE SODIUM 10 MG/ML (10ML CUP) GTB ×2 (08:45→20:34)
[2017-10-12] MEDS: COLLAGENASE 30 GM TUBE TOP (10:11)
[2017-10-12] MEDS: VORICONAZOLE 200 MG TAB PO ×2 (10:12→20:36)
[2017-10-12] MEDS: MULTIVIT/CA CARB/B CMPLX/FA TAB GTB (10:12)
[2017-10-12] MEDS: NORepinephrine 32 MG in SOD CHLORIDE 0.9% 218 ML IV (12:18)
[2017-10-12] MEDS: CEFTAZIDIME 1GM/50 ML (PMX) 50 ML IVPB (17:12)
[2017-10-12 19:47] LABS: IRON 67 ug/dl (35-150)
[2017-10-12 19:56] LABS: % IRON SATURATION 36 % SAT (22-52); TOTAL IRON BINDING CAPACITY 184 ug/dl (241-421)
[2017-10-12] MEDS: SENNA TAB GTB (20:34)
[2017-10-12] MEDS: QUETIAPINE 25 MG TAB GTB (20:36)
[2017-10-13] MEDS: ACCU-CHEK XX (02:00)
[2017-10-13] MEDS: MIDODRINE 5 MG TAB GTB ×3 (05:49→21:04)
[2017-10-13] MEDS: PANTOPRAZOLE 40 MG INJ IV ×2 (05:49→17:53)
[2017-10-13] MEDS: HYDROCORTISONE 100 MG INJ IV ×3 (05:50→21:01)
[2017-10-13] MEDS: METOCLOPRAMIDE 10 MG INJ IV ×3 (05:50→12:19)
[2017-10-13] MEDS: INSULIN ASPART [NOVOLOG] 3 ML PEN SC ×3 (05:58→21:04)
[2017-10-13 06:03] LABS: ADD MAN DIFF? NO
[2017-10-13 06:09] LABS: WHITE BLOOD COUNT 11.4 10^3/ul (4.8-10.8)
[2017-10-13 06:09] LABS: BASOPHILS % 0.1 % (0.0-2.0); EOSINOPHILS # 0.7 10^3/ul (0.0-0.5); HEMATOCRIT 29.3 % (42.0-52.0); HEMOGLOBIN 8.8 g/dl (14.0-18.0); LYMPHOCYTES # 1.3 10^3/ul (0.8-2.9); LYMPHOCYTES % 11.7 % (15.0-51.0); MEAN CORPUSCULAR HEMOGLOBIN 30.6 pg (29.0-33.0); MEAN CORPUSCULAR VOLUME 101.7 fl (82.0-101.0); MEAN PLATELET VOLUME 11.4 fl (7.4-10.4); MONOCYTE # 0.5 10^3/ul (0.3-0.9); NEUTROPHIL # 8.8 10^3/ul (1.6-7.5); NEUTROPHILS % 77.3 % (39.0-77.0); NUCLEATED RED BLOOD CELLS% 0.2 /100WBC (0.0-0.0); PLATELET COUNT 107 10^3/UL (140-415); RED BLOOD COUNT 2.88 10^6/ul (4.70-6.10); RED CELL DISTRIBUTION WIDTH 20.5 % (11.5-14.5)
[2017-10-13 06:46] LABS: ANION GAP 13 (8-16); BLOOD UREA NITROGEN 22 mg/dl (7-20); CALCIUM 8.8 mg/dl (8.4-10.2); CARBON DIOXIDE 35 mmol/L (21-31); CHLORIDE 101 mmol/L (97-110); CREATININE 2.22 mg/dl (0.61-1.24); GLUCOSE 87 mg/dl (70-220); PHOSPHORUS 2.5 mg/dl (2.5-4.9); POTASSIUM 4.2 mmol/L (3.5-5.1); SODIUM 145 mmol/L (135-144)
[2017-10-13] MEDS: DOCUSATE SODIUM 10 MG/ML (10ML CUP) GTB ×2 (07:41→20:07)
[2017-10-13] MEDS: COLISTIMETHATE (25 MG/ML INHAL SYG) NEB ×2 (09:51→20:18)
[2017-10-13] MEDS: NYSTATIN 30 GM POWDER BTL TOP ×6 (09:56→21:05)
[2017-10-13] MEDS: VORICONAZOLE 200 MG TAB PO ×2 (09:56→21:02)
[2017-10-13] MEDS: MULTIVIT/CA CARB/B CMPLX/FA TAB GTB (09:56)
[2017-10-13] MEDS: COLLAGENASE 30 GM TUBE TOP (09:57)
[2017-10-13] MEDS: CEFTAZIDIME 1GM/50 ML (PMX) 50 ML IVPB (14:21)
[2017-10-13] MEDS: EPOETIN 10000 UNITS/1 ML INJ (ESRD) SC (17:54)
[2017-10-13] MEDS: SENNA TAB GTB (20:07)
[2017-10-13] MEDS: QUETIAPINE 25 MG TAB GTB (21:05)
[2017-10-14 04:45] LABS: ADD MAN DIFF? NO
[2017-10-14 04:52] LABS: WHITE BLOOD COUNT 11.6 10^3/ul (4.8-10.8)
[2017-10-14 04:52] LABS: BASOPHILS % 0.1 % (0.0-2.0); EOSINOPHILS # 1.6 10^3/ul (0.0-0.5); EOSINOPHILS % 13.3 % (0.0-7.0); HEMATOCRIT 30.3 % (42.0-52.0); HEMOGLOBIN 9.1 g/dl (14.0-18.0); LYMPHOCYTES # 1.4 10^3/ul (0.8-2.9); LYMPHOCYTES % 12.2 % (15.0-51.0); MEAN CORPUSCULAR HEMOGLOBIN 30.5 pg (29.0-33.0); MEAN CORPUSCULAR VOLUME 101.7 fl (82.0-101.0); MEAN PLATELET VOLUME 10.7 fl (7.4-10.4); MONOCYTE # 0.5 10^3/ul (0.3-0.9); MONOCYTES % 4.1 % (0.0-11.0); NEUTROPHIL # 8.1 10^3/ul (1.6-7.5); NEUTROPHILS % 69.5 % (39.0-77.0); NUCLEATED RED BLOOD CELLS% 0.2 /100WBC (0.0-0.0); PLATELET COUNT 109 10^3/UL (140-415); RED BLOOD COUNT 2.98 10^6/ul (4.70-6.10); RED CELL DISTRIBUTION WIDTH 20.5 % (11.5-14.5)
[2017-10-14] MEDS: HYDROCORTISONE 100 MG INJ IV ×2 (05:09→14:09)
[2017-10-14] MEDS: MIDODRINE 5 MG TAB GTB ×2 (05:09→14:09)
[2017-10-14] MEDS: INSULIN ASPART [NOVOLOG] 3 ML PEN SC ×3 (05:10→22:00)
[2017-10-14] MEDS: METOCLOPRAMIDE 10 MG INJ IV ×4 (05:14→16:23)
[2017-10-14] MEDS: PANTOPRAZOLE 40 MG INJ IV ×2 (05:14→18:43)
[2017-10-14 05:19] LABS: ANION GAP 18 (8-16); BLOOD UREA NITROGEN 27 mg/dl (7-20); CALCIUM 8.7 mg/dl (8.4-10.2); CARBON DIOXIDE 30 mmol/L (21-31); CHLORIDE 101 mmol/L (97-110); CREATININE 2.76 mg/dl (0.61-1.24); GLUCOSE 70 mg/dl (70-220); PHOSPHORUS 3.2 mg/dl (2.5-4.9); POTASSIUM 4.6 mmol/L (3.5-5.1); SODIUM 144 mmol/L (135-144)
[2017-10-14] MEDS: DOCUSATE SODIUM 10 MG/ML (10ML CUP) GTB ×2 (07:39→20:43)
[2017-10-14] MEDS: COLISTIMETHATE (25 MG/ML INHAL SYG) NEB ×2 (09:26→19:53)
[2017-10-14] MEDS: NYSTATIN 30 GM POWDER BTL TOP ×6 (09:28→20:47)
[2017-10-14] MEDS: MULTIVIT/CA CARB/B CMPLX/FA TAB GTB (09:29)
[2017-10-14] MEDS: COLLAGENASE 30 GM TUBE TOP (09:29)
[2017-10-14] MEDS: VORICONAZOLE 200 MG TAB PO ×2 (09:29→20:38)
[2017-10-14 12:06] LABS: MITOCHONDRIAL TB NEGATIVE (NEGATIVE)
[2017-10-14 13:38] LABS: ANA SCREEN NEGATIVE (NEGATIVE)
[2017-10-14 16:17] LABS: VANCOMYCIN,TROUGH 14.3 ug/ml (10.0-20.0)
[2017-10-14 16:31] LABS: SMOOTH MUSCLE AB SCREEN POSITIVE (NEGATIVE); SMOOTH MUSCLE AB TITER 1:40 titer (<1:20)
[2017-10-14 17:21] LABS: ALPHA 1 ANTITRYPSIN 149 mg/dL (83-199); CERULOPLASMIN 29 mg/dL (18-36)
[2017-10-14] MEDS: QUETIAPINE 25 MG TAB GTB (20:38)
[2017-10-14] MEDS: SENNA TAB GTB (20:44)
[2017-10-15] MEDS: ALBUMIN HUMAN 25% 100 ML IV (00:14)
[2017-10-15] MEDS: HYDROCORTISONE 100 MG INJ IV ×4 (02:50→21:19)
[2017-10-15] MEDS: CEFTAZIDIME 1GM/50 ML (PMX) 50 ML IVPB ×2 (02:53→16:45)
[2017-10-15] MEDS: MIDODRINE 5 MG TAB GTB ×4 (03:11→21:17)
[2017-10-15] MEDS: VANCOMYCIN 1 GM 250 ML IVPB (03:56)
[2017-10-15 05:42] LABS: ADD MAN DIFF? NO
[2017-10-15 05:43] LABS: ABNORMAL IP MESSAGE 1; BASOPHILS % 0.1 % (0.0-2.0); EOSINOPHILS % 7.6 % (0.0-7.0); HEMATOCRIT 30.3 % (42.0-52.0); HEMOGLOBIN 9.2 g/dl (14.0-18.0); LYMPHOCYTES # 1.1 10^3/ul (0.8-2.9); LYMPHOCYTES % 8.9 % (15.0-51.0); MEAN CORPUSCULAR HGB CONC 30.4 g/dl (32.0-37.0); MEAN PLATELET VOLUME 11.1 fl (7.4-10.4); MONOCYTE # 0.5 10^3/ul (0.3-0.9); NEUTROPHILS % 78.8 % (39.0-77.0); PLATELET COUNT 98 10^3/UL (140-415); POSITIVE DIFF @See below; RED BLOOD COUNT 2.97 10^6/ul (4.70-6.10); RED CELL DISTRIBUTION WIDTH 20.5 % (11.5-14.5)
[2017-10-15 05:43] LABS: WHITE BLOOD COUNT 12.7 10^3/ul (4.8-10.8)
[2017-10-15] MEDS: PANTOPRAZOLE 40 MG INJ IV ×2 (05:47→17:37)
[2017-10-15] MEDS: METOCLOPRAMIDE 10 MG INJ IV ×5 (06:00→23:08)
[2017-10-15] MEDS: INSULIN ASPART [NOVOLOG] 3 ML PEN SC ×2 (06:00→21:00)
[2017-10-15 06:08] LABS: ANION GAP 17 (8-16); BLOOD UREA NITROGEN 20 mg/dl (7-20); CALCIUM 8.9 mg/dl (8.4-10.2); CARBON DIOXIDE 32 mmol/L (21-31); CHLORIDE 100 mmol/L (97-110); CREATININE 2.02 mg/dl (0.61-1.24); GLUCOSE 85 mg/dl (70-220); PHOSPHORUS 2.8 mg/dl (2.5-4.9); POTASSIUM 4.5 mmol/L (3.5-5.1); SODIUM 144 mmol/L (135-144)
[2017-10-15] MEDS: DOCUSATE SODIUM 10 MG/ML (10ML CUP) GTB ×2 (07:44→21:00)
[2017-10-15] MEDS: COLISTIMETHATE (25 MG/ML INHAL SYG) NEB ×2 (09:06→19:52)
[2017-10-15] MEDS: MULTIVIT/CA CARB/B CMPLX/FA TAB GTB (09:37)
[2017-10-15] MEDS: NYSTATIN 30 GM POWDER BTL TOP ×6 (09:37→21:19)
[2017-10-15] MEDS: VORICONAZOLE 200 MG TAB PO ×2 (09:37→21:17)
[2017-10-15] MEDS: COLLAGENASE 30 GM TUBE TOP (09:38)
[2017-10-15] MEDS: HYDROCODONE/APAP (10/325) TAB GTB (15:10)
[2017-10-15] MEDS: EPOETIN 10000 UNITS/1 ML INJ (ESRD) SC (17:38)
[2017-10-15] MEDS: SENNA TAB GTB (21:00)
[2017-10-15] MEDS: QUETIAPINE 25 MG TAB GTB (21:17)
[2017-10-16] MEDS: METOCLOPRAMIDE 10 MG INJ IV ×3 (05:08→17:47)
[2017-10-16 05:11] LABS: ADD MAN DIFF? NO
[2017-10-16 05:13] LABS: BASOPHILS % 0.1 % (0.0-2.0); EOSINOPHILS # 0.1 10^3/ul (0.0-0.5); EOSINOPHILS % 1.1 % (0.0-7.0); HEMATOCRIT 29.9 % (42.0-52.0); HEMOGLOBIN 9.3 g/dl (14.0-18.0); LYMPHOCYTES # 0.9 10^3/ul (0.8-2.9); LYMPHOCYTES % 8.4 % (15.0-51.0); MEAN CORPUSCULAR HGB CONC 31.1 g/dl (32.0-37.0); MEAN CORPUSCULAR VOLUME 99.7 fl (82.0-101.0); MEAN PLATELET VOLUME 10.8 fl (7.4-10.4); MONOCYTE # 0.4 10^3/ul (0.3-0.9); MONOCYTES % 3.7 % (0.0-11.0); NEUTROPHIL # 9.5 10^3/ul (1.6-7.5); NEUTROPHILS % 86.4 % (39.0-77.0); PLATELET COUNT 111 10^3/UL (140-415); RED CELL DISTRIBUTION WIDTH 20.8 % (11.5-14.5)
[2017-10-16] MEDS: MIDODRINE 5 MG TAB GTB ×3 (05:14→22:01)
[2017-10-16] MEDS: PANTOPRAZOLE 40 MG INJ IV ×2 (05:14→17:47)
[2017-10-16] MEDS: HYDROCORTISONE 100 MG INJ IV ×3 (05:14→21:59)
[2017-10-16 05:46] LABS: ANION GAP 18 (8-16); BLOOD UREA NITROGEN 25 mg/dl (7-20); CALCIUM 8.8 mg/dl (8.4-10.2); CARBON DIOXIDE 29 mmol/L (21-31); CHLORIDE 100 mmol/L (97-110); CREATININE 2.67 mg/dl (0.61-1.24); GLUCOSE 103 mg/dl (70-220); PHOSPHORUS 3.4 mg/dl (2.5-4.9); POTASSIUM 4.8 mmol/L (3.5-5.1); SODIUM 142 mmol/L (135-144)
[2017-10-16] MEDS: DOCUSATE SODIUM 10 MG/ML (10ML CUP) GTB ×2 (08:42→21:00)
[2017-10-16] MEDS: MULTIVIT/CA CARB/B CMPLX/FA TAB GTB (08:43)
[2017-10-16] MEDS: VORICONAZOLE 200 MG TAB PO ×2 (08:43→21:01)
[2017-10-16] MEDS: NYSTATIN 30 GM POWDER BTL TOP ×4 (08:43→21:02)
[2017-10-16] MEDS: COLLAGENASE 30 GM TUBE TOP (08:44)
[2017-10-16] MEDS: COLISTIMETHATE (25 MG/ML INHAL SYG) NEB ×2 (09:15→20:58)
[2017-10-16] MEDS: ALBUMIN HUMAN 25% 100 ML IV (12:32)
[2017-10-16] MEDS: CEFTAZIDIME 1GM/50 ML (PMX) 50 ML IVPB (17:47)
[2017-10-16] MEDS: INSULIN ASPART [NOVOLOG] 3 ML PEN SC (21:00)
[2017-10-16] MEDS: SENNA TAB GTB (21:00)
[2017-10-16] MEDS: QUETIAPINE 25 MG TAB GTB (21:01)
[2017-10-17] MEDS: METOCLOPRAMIDE 10 MG INJ IV ×4 (00:58→17:21)
[2017-10-17] MEDS: PANTOPRAZOLE 40 MG INJ IV ×2 (05:19→17:20)
[2017-10-17] MEDS: HYDROCORTISONE 100 MG INJ IV (05:19)
[2017-10-17] MEDS: MIDODRINE 5 MG TAB GTB ×2 (05:20→14:33)
[2017-10-17 05:32] LABS: ADD MAN DIFF? NO
[2017-10-17 05:38] LABS: ABNORMAL IP MESSAGE 1; BASOPHILS % 0.2 % (0.0-2.0); EOSINOPHILS # 0.6 10^3/ul (0.0-0.5); EOSINOPHILS % 5.5 % (0.0-7.0); HEMATOCRIT 30.2 % (42.0-52.0); HEMOGLOBIN 9.1 g/dl (14.0-18.0); LYMPHOCYTES # 1.1 10^3/ul (0.8-2.9); LYMPHOCYTES % 9.9 % (15.0-51.0); MEAN CORPUSCULAR HEMOGLOBIN 30.7 pg (29.0-33.0); MEAN CORPUSCULAR HGB CONC 30.1 g/dl (32.0-37.0); MEAN PLATELET VOLUME 10.7 fl (7.4-10.4); MONOCYTE # 0.6 10^3/ul (0.3-0.9); MONOCYTES % 5.2 % (0.0-11.0); NEUTROPHIL # 8.7 10^3/ul (1.6-7.5); NEUTROPHILS % 78.8 % (39.0-77.0); PLATELET COUNT 93 10^3/UL (140-415); POSITIVE DIFF @See below; RED BLOOD COUNT 2.96 10^6/ul (4.70-6.10)
[2017-10-17 05:38] LABS: WHITE BLOOD COUNT 11.1 10^3/ul (4.8-10.8)
[2017-10-17 05:55] LABS: ANION GAP 16 (8-16); BLOOD UREA NITROGEN 19 mg/dl (7-20); CALCIUM 8.7 mg/dl (8.4-10.2); CARBON DIOXIDE 31 mmol/L (21-31); CHLORIDE 98 mmol/L (97-110); CREATININE 2.06 mg/dl (0.61-1.24); GLUCOSE 87 mg/dl (70-220); MAGNESIUM 1.9 mg/dl (1.7-2.5); PHOSPHORUS 2.9 mg/dl (2.5-4.9); POTASSIUM 4.4 mmol/L (3.5-5.1); SODIUM 141 mmol/L (135-144)
[2017-10-17] MEDS: DOCUSATE SODIUM 10 MG/ML (10ML CUP) GTB (08:34)
[2017-10-17] MEDS: COLLAGENASE 30 GM TUBE TOP (08:51)
[2017-10-17] MEDS: MULTIVIT/CA CARB/B CMPLX/FA TAB GTB (08:51)
[2017-10-17] MEDS: NYSTATIN 30 GM POWDER BTL TOP (08:51)
[2017-10-17] MEDS: VORICONAZOLE 200 MG TAB PO (08:51)
[2017-10-17] MEDS: COLISTIMETHATE (25 MG/ML INHAL SYG) NEB (09:16)
[2017-10-17] MEDS: CEFTAZIDIME 1GM/50 ML (PMX) 50 ML IVPB (14:33)
[2017-10-17] MEDS: EPOETIN 10000 UNITS/1 ML INJ (ESRD) SC (17:21)
[2017-10-19] MEDS ORDERED: VANCOMYCIN 1 GM 250 ML IVPB (04:00)
== END 2017-10-17 18:20 | DRG 377 ==
LOC: ICU 18:58
PROVIDERS: Internal Medicine
PROC: 5A1955Z Respiratory Ventilation, Greater than 96 Consecutive Hours (ICD-10-PCS; principal; 2017-10-04 17:00)
PROC: 30233N1 Transfusion of Nonautologous Red Blood Cells into Peripheral Vein, Percutaneous Approach (ICD-10-PCS; 2017-10-04 17:00)
PROC: 06HM33Z Insertion of Infusion Device into Right Femoral Vein, Percutaneous Approach (ICD-10-PCS; 2017-10-04 17:00)
PROC: 04HK33Z Insertion of Infusion Device into Right Femoral Artery, Percutaneous Approach (ICD-10-PCS; 2017-10-04 17:00)
PROC: 0DJD8ZZ Inspection of Lower Intestinal Tract, Via Natural or Artificial Opening Endoscopic (ICD-10-PCS; 2017-10-04 17:00)
PROC: 0DJ08ZZ Inspection of Upper Intestinal Tract, Via Natural or Artificial Opening Endoscopic (ICD-10-PCS; 2017-10-04 17:00)
DX: K92.2 Gastrointestinal hemorrhage, unspecified (principal); N18.6 End stage renal disease; G92 Toxic encephalopathy; A41.9 Sepsis, unspecified organism; R65.21 Severe sepsis with septic shock; J18.9 Pneumonia, unspecified organism; R57.1 Hypovolemic shock; J15.1 Pneumonia due to Pseudomonas; I95.9 Hypotension, unspecified; J96.10 Chronic respiratory failure, unspecified whether with hypoxia or hypercapnia; L89.150 Pressure ulcer of sacral region, unstageable; I12.0 Hypertensive chronic kidney disease with stage 5 chronic kidney disease or end stage renal disease; D62 Acute posthemorrhagic anemia; Z93.0 Tracheostomy status; Z99.2 Dependence on renal dialysis; Z79.02 Long term (current) use of antithrombotics/antiplatelets; Z93.1 Gastrostomy status; Z95.0 Presence of cardiac pacemaker; E11.9 Type 2 diabetes mellitus without complications; Z95.2 Presence of prosthetic heart valve; Z86.711 Personal history of pulmonary embolism; Z95.1 Presence of aortocoronary bypass graft; K57.30 Diverticulosis of large intestine without perforation or abscess without bleeding; K64.4 Residual hemorrhoidal skin tags; K64.8 Other hemorrhoids; K29.70 Gastritis, unspecified, without bleeding; K21.9 Gastro-esophageal reflux disease without esophagitis; L03.012 Cellulitis of left finger; I73.9 Peripheral vascular disease, unspecified; L89.620 Pressure ulcer of left heel, unstageable; L89.322 Pressure ulcer of left buttock, stage 2; L89.312 Pressure ulcer of right buttock, stage 2; L89.890 Pressure ulcer of other site, unstageable
CPT/HCPCS: 36430; 36600; 71045; 78278; 80048; 80053; 80076; 80202; 82103; 82390; 82525; 82533; 82803; 82962; 83540; 83605; 83735; 84100; 84145; 85014; 85018; 85025; 85610; 85730; 86038; 86255; 86850; 86900; 86901; 86920; 87040; 87070; 87081; 87086; 87340; 89220; 90935; 94002; 94003; 94640; 94664; 94770

== ENCOUNTER 2017-11-11 18:02 | Inpatient (IN) | payer MEDICARE, OTHER ==
[~2017-11-11 18:02] MED LIST: GLUCAGON 1 MG INJ
[2017-11-11 19:15] LABS: ADD MAN DIFF? NO
[2017-11-11 19:18] LABS: BASOPHILS % 0.4 % (0.0-2.0); EOSINOPHILS # 0.3 10^3/ul (0.0-0.5); EOSINOPHILS % 3.3 % (0.0-7.0); HEMATOCRIT 22.7 % (42.0-52.0); HEMOGLOBIN 7.1 g/dl (14.0-18.0); LYMPHOCYTES # 0.8 10^3/ul (0.8-2.9); LYMPHOCYTES % 8.8 % (15.0-51.0); MEAN CORPUSCULAR HEMOGLOBIN 30.1 pg (29.0-33.0); MEAN CORPUSCULAR HGB CONC 31.3 g/dl (32.0-37.0); MEAN CORPUSCULAR VOLUME 96.2 fl (82.0-101.0); MEAN PLATELET VOLUME 11.3 fl (7.4-10.4); MONOCYTE # 0.8 10^3/ul (0.3-0.9); MONOCYTES % 8.1 % (0.0-11.0); NEUTROPHIL # 7.3 10^3/ul (1.6-7.5); NEUTROPHILS % 77.9 % (39.0-77.0); NUCLEATED RED BLOOD CELLS% 0.2 /100WBC (0.0-0.0); PLATELET COUNT 147 10^3/UL (140-415); RED BLOOD COUNT 2.36 10^6/ul (4.70-6.10)
[2017-11-11 19:18] LABS: WHITE BLOOD COUNT 9.4 10^3/ul (4.8-10.8)
[2017-11-11] MEDS: DEXTROSE 5%-0.45% NACL 1,000 ML IV (19:34)
[2017-11-11] MEDS: NORepinephrine 8MG/250 ML (PMX 250 ML IV (19:35)
[2017-11-11 19:38] LABS: ALANINE AMINOTRANSFERASE 27 IU/L (13-69); ALBUMIN 3.6 g/dl (3.3-4.9); ALBUMIN/GLOBULIN RATIO 0.85; ALKALINE PHOSPHATASE 77 IU/L (42-121); ANION GAP 19 (8-16); ASPARTATE AMINO TRANSFERASE 57 IU/L (15-46); BLOOD UREA NITROGEN 72 mg/dl (7-20); CALCIUM 8.8 mg/dl (8.4-10.2); CARBON DIOXIDE 26 mmol/L (21-31); CHLORIDE 104 mmol/L (97-110); CREATININE 3.14 mg/dl (0.61-1.24); GLUCOSE 104 mg/dl (70-220); MAGNESIUM 2.1 mg/dl (1.7-2.5); POTASSIUM 4.7 mmol/L (3.5-5.1); SODIUM 144 mmol/L (135-144); TOTAL PROTEIN 7.8 g/dl (6.1-8.1)
[2017-11-11 19:53] LABS: LACTIC ACID 1.2 mmol/L (0.5-2.0)
[2017-11-11] MEDS: PANTOPRAZOLE 40 MG INJ IV (22:30)
[2017-11-12 00:36] LABS: IMMEDIATE SPIN CROSSMATCH 1 1
[2017-11-12] MEDS: PANTOPRAZOLE 40 MG INJ IV ×2 (05:04→17:04)
[2017-11-12 08:54] LABS: ADD MAN DIFF? NO
[2017-11-12 09:04] LABS: BASOPHIL # 0.1 10^3/ul (0.0-0.1); BASOPHILS % 0.5 % (0.0-2.0); EOSINOPHILS # 0.3 10^3/ul (0.0-0.5); EOSINOPHILS % 3.2 % (0.0-7.0); HEMATOCRIT 25.2 % (42.0-52.0); HEMOGLOBIN 7.9 g/dl (14.0-18.0); LYMPHOCYTES % 9.8 % (15.0-51.0); MEAN CORPUSCULAR HEMOGLOBIN 29.5 pg (29.0-33.0); MEAN CORPUSCULAR HGB CONC 31.3 g/dl (32.0-37.0); MEAN PLATELET VOLUME 11.2 fl (7.4-10.4); MONOCYTE # 0.8 10^3/ul (0.3-0.9); MONOCYTES % 7.4 % (0.0-11.0); NEUTROPHIL # 8.3 10^3/ul (1.6-7.5); NEUTROPHILS % 77.9 % (39.0-77.0); PLATELET COUNT 164 10^3/UL (140-415); RED BLOOD COUNT 2.68 10^6/ul (4.70-6.10); RED CELL DISTRIBUTION WIDTH 19.1 % (11.5-14.5)
[2017-11-12 09:04] LABS: WHITE BLOOD COUNT 10.6 10^3/ul (4.8-10.8)
[2017-11-12 09:16] LABS: LACTIC ACID 0.9 mmol/L (0.5-2.0)
[2017-11-12 09:18] LABS: INR 1.52; PROTIME 18.6 Sec (11.9-14.9); PT RATIO 1.5
[2017-11-12 09:19] LABS: PARTIAL THROMBOPLASTIN TIME 38.3 Sec (25.0-35.0)
[2017-11-12 09:22] LABS: ALANINE AMINOTRANSFERASE 18 IU/L (13-69); ALBUMIN 3.6 g/dl (3.3-4.9); ALKALINE PHOSPHATASE 83 IU/L (42-121); ANION GAP 19 (8-16); ASPARTATE AMINO TRANSFERASE 26 IU/L (15-46); BLOOD UREA NITROGEN 75 mg/dl (7-20); CALCIUM 9.3 mg/dl (8.4-10.2); CARBON DIOXIDE 28 mmol/L (21-31); CHLORIDE 103 mmol/L (97-110); CREATININE 3.65 mg/dl (0.61-1.24); GLUCOSE 103 mg/dl (70-220); SODIUM 146 mmol/L (135-144); TOTAL PROTEIN 7.6 g/dl (6.1-8.1)
[2017-11-12] MEDS: CEFEPIME 1GM/50 ML (PMX) 50 ML IVPB (10:33)
[2017-11-12] MEDS ORDERED: VANCOMYCIN IV PER PHARMACY XX (14:00)
[2017-11-12 14:18] LABS: ADD MAN DIFF? NO
[2017-11-12 14:21] LABS: WHITE BLOOD COUNT 9.2 10^3/ul (4.8-10.8)
[2017-11-12 14:21] LABS: BASOPHILS % 0.3 % (0.0-2.0); EOSINOPHILS # 0.3 10^3/ul (0.0-0.5); EOSINOPHILS % 3.4 % (0.0-7.0); HEMOGLOBIN 7.8 g/dl (14.0-18.0); LYMPHOCYTES # 1.1 10^3/ul (0.8-2.9); LYMPHOCYTES % 11.9 % (15.0-51.0); MEAN CORPUSCULAR HEMOGLOBIN 29.5 pg (29.0-33.0); MEAN CORPUSCULAR HGB CONC 31.2 g/dl (32.0-37.0); MEAN CORPUSCULAR VOLUME 94.7 fl (82.0-101.0); MEAN PLATELET VOLUME 10.7 fl (7.4-10.4); MONOCYTE # 0.7 10^3/ul (0.3-0.9); MONOCYTES % 8.1 % (0.0-11.0); NEUTROPHIL # 6.9 10^3/ul (1.6-7.5); NEUTROPHILS % 75.2 % (39.0-77.0); PLATELET COUNT 149 10^3/UL (140-415); RED BLOOD COUNT 2.64 10^6/ul (4.70-6.10)
[2017-11-12] MEDS ORDERED: EPHEDrine SULFATE 50 MG/5 ML SYG IV (15:00)
[2017-11-12] MEDS ORDERED: morphine 2 MG INJ IV (15:00)
[2017-11-12] MEDS: MEROPENEM 500MG/50 ML (PMX) 50 ML IVPB ×2 (17:02→20:15)
[2017-11-12] MEDS: DEXTROSE 5%-0.45% NACL 1,000 ML IV (17:02)
[2017-11-12] MEDS: VANCOMYCIN 1 GM 250 ML IVPB (18:01)
[2017-11-13] MEDS: PANTOPRAZOLE 40 MG INJ IV ×2 (05:34→17:12)
[2017-11-13 06:04] LABS: ADD MAN DIFF? NO
[2017-11-13 06:24] LABS: BASOPHILS % 0.3 % (0.0-2.0); EOSINOPHILS # 0.4 10^3/ul (0.0-0.5); EOSINOPHILS % 3.4 % (0.0-7.0); HEMATOCRIT 27.9 % (42.0-52.0); HEMOGLOBIN 8.6 g/dl (14.0-18.0); LYMPHOCYTES # 0.8 10^3/ul (0.8-2.9); LYMPHOCYTES % 7.3 % (15.0-51.0); MEAN CORPUSCULAR HEMOGLOBIN 29.9 pg (29.0-33.0); MEAN CORPUSCULAR HGB CONC 30.8 g/dl (32.0-37.0); MEAN CORPUSCULAR VOLUME 96.9 fl (82.0-101.0); MEAN PLATELET VOLUME 11.2 fl (7.4-10.4); MONOCYTE # 0.5 10^3/ul (0.3-0.9); MONOCYTES % 4.6 % (0.0-11.0); NEUTROPHIL # 9.3 10^3/ul (1.6-7.5); NEUTROPHILS % 83.3 % (39.0-77.0); NUCLEATED RED BLOOD CELLS% 0.2 /100WBC (0.0-0.0); PLATELET COUNT 179 10^3/UL (140-415); RED BLOOD COUNT 2.88 10^6/ul (4.70-6.10); RED CELL DISTRIBUTION WIDTH 18.9 % (11.5-14.5)
[2017-11-13 06:24] LABS: WHITE BLOOD COUNT 11.2 10^3/ul (4.8-10.8)
[2017-11-13 06:46] LABS: ANION GAP 24 (8-16); BLOOD UREA NITROGEN 80 mg/dl (7-20); CALCIUM 9.4 mg/dl (8.4-10.2); CARBON DIOXIDE 23 mmol/L (21-31); CHLORIDE 103 mmol/L (97-110); CREATININE 4.21 mg/dl (0.61-1.24); GLUCOSE 99 mg/dl (70-220); MAGNESIUM 2.2 mg/dl (1.7-2.5); PHOSPHORUS 4.2 mg/dl (2.5-4.9); POTASSIUM 4.1 mmol/L (3.5-5.1); SODIUM 146 mmol/L (135-144)
[2017-11-13] MEDS ORDERED: GLUCAGON 1 MG INJ IM (08:00)
[2017-11-13] MEDS ORDERED: GLUCOSE GEL 15 GRAM TUBE PO ×2 (08:00)
[2017-11-13] MEDS ORDERED: DEXTROSE 50% 50 ML SYRINGE IV ×2 (08:00)
[2017-11-13] MEDS ORDERED: GLUCOSE GEL 15 GRAM TUBE BUCCAL (08:00)
[2017-11-13] MEDS: INSULIN ASPART [NOVOLOG] 3 ML PEN SC ×3 (11:30→20:53)
[2017-11-13] MEDS: MEROPENEM 500MG/50 ML (PMX) 50 ML IVPB ×2 (13:07→20:52)
[2017-11-13] MEDS: EPOETIN 10000 UNITS/1 ML INJ (ESRD) SC (17:13)
[2017-11-14 05:19] LABS: ADD MAN DIFF? NO
[2017-11-14 05:24] LABS: BASOPHILS % 0.4 % (0.0-2.0); EOSINOPHILS # 0.4 10^3/ul (0.0-0.5); EOSINOPHILS % 3.5 % (0.0-7.0); HEMOGLOBIN 7.7 g/dl (14.0-18.0); LYMPHOCYTES # 0.9 10^3/ul (0.8-2.9); LYMPHOCYTES % 7.7 % (15.0-51.0); MEAN CORPUSCULAR HEMOGLOBIN 29.5 pg (29.0-33.0); MEAN CORPUSCULAR HGB CONC 30.8 g/dl (32.0-37.0); MEAN CORPUSCULAR VOLUME 95.8 fl (82.0-101.0); MEAN PLATELET VOLUME 10.8 fl (7.4-10.4); MONOCYTE # 0.8 10^3/ul (0.3-0.9); MONOCYTES % 6.9 % (0.0-11.0); NEUTROPHIL # 8.9 10^3/ul (1.6-7.5); NEUTROPHILS % 80.6 % (39.0-77.0); PLATELET COUNT 178 10^3/UL (140-415); RED BLOOD COUNT 2.61 10^6/ul (4.70-6.10); RED CELL DISTRIBUTION WIDTH 18.9 % (11.5-14.5)
[2017-11-14 05:46] LABS: ANION GAP 21 (8-16); BLOOD UREA NITROGEN 48 mg/dl (7-20); CALCIUM 9.1 mg/dl (8.4-10.2); CARBON DIOXIDE 25 mmol/L (21-31); CHLORIDE 102 mmol/L (97-110); CREATININE 3.16 mg/dl (0.61-1.24); GLUCOSE 114 mg/dl (70-220); MAGNESIUM 1.9 mg/dl (1.7-2.5); PHOSPHORUS 3.2 mg/dl (2.5-4.9); POTASSIUM 3.7 mmol/L (3.5-5.1); SODIUM 144 mmol/L (135-144)
[2017-11-14] MEDS: PANTOPRAZOLE 40 MG INJ IV ×2 (06:38→18:01)
[2017-11-14] MEDS: INSULIN ASPART [NOVOLOG] 3 ML PEN SC ×5 (06:53→21:00)
[2017-11-14] MEDS: DOCUSATE SODIUM 10 MG/ML (10ML CUP) GTB ×2 (07:58→21:00)
[2017-11-14] MEDS: MEROPENEM 500MG/50 ML (PMX) 50 ML IVPB ×2 (09:00→21:44)
[2017-11-14] MEDS: SENNA TAB PO (09:00)
[2017-11-14] MEDS: NYSTATIN 15 GM POWDER BTL TOP ×2 (10:05→21:43)
[2017-11-14] MEDS: COLLAGENASE 30 GM TUBE TOP (10:05)
[2017-11-14] MEDS: MIDODRINE 5 MG TAB PO ×3 (10:06→21:44)
[2017-11-14] MEDS: ONDANSETRON 4 MG INJ IV ×4 (10:06→21:43)
[2017-11-14] MEDS ORDERED: GLUCOSE GEL 15 GRAM TUBE BUCCAL (13:00)
[2017-11-14] MEDS ORDERED: GLUCAGON 1 MG INJ IM (13:00)
[2017-11-14] MEDS ORDERED: GLUCOSE GEL 15 GRAM TUBE PO ×2 (13:00)
[2017-11-14] MEDS ORDERED: DEXTROSE 50% 50 ML SYRINGE IV ×2 (13:00)
[2017-11-15] MEDS: ONDANSETRON 4 MG INJ IV ×6 (00:23→21:06)
[2017-11-15] MEDS: INSULIN ASPART [NOVOLOG] 3 ML PEN SC ×6 (01:00→23:31)
[2017-11-15] MEDS ORDERED: ACCU-CHEK XX (02:00)
[2017-11-15 05:20] LABS: ADD MAN DIFF? NO
[2017-11-15 05:25] LABS: BASOPHIL # 0.1 10^3/ul (0.0-0.1); BASOPHILS % 0.5 % (0.0-2.0); EOSINOPHILS # 0.8 10^3/ul (0.0-0.5); EOSINOPHILS % 7.3 % (0.0-7.0); HEMATOCRIT 25.2 % (42.0-52.0); HEMOGLOBIN 7.7 g/dl (14.0-18.0); LYMPHOCYTES # 1.1 10^3/ul (0.8-2.9); LYMPHOCYTES % 10.6 % (15.0-51.0); MEAN CORPUSCULAR HEMOGLOBIN 29.7 pg (29.0-33.0); MEAN CORPUSCULAR HGB CONC 30.6 g/dl (32.0-37.0); MEAN CORPUSCULAR VOLUME 97.3 fl (82.0-101.0); MONOCYTE # 0.9 10^3/ul (0.3-0.9); MONOCYTES % 8.6 % (0.0-11.0); NEUTROPHIL # 7.6 10^3/ul (1.6-7.5); NEUTROPHILS % 71.5 % (39.0-77.0); PLATELET COUNT 191 10^3/UL (140-415); RED BLOOD COUNT 2.59 10^6/ul (4.70-6.10); RED CELL DISTRIBUTION WIDTH 18.6 % (11.5-14.5)
[2017-11-15 05:25] LABS: WHITE BLOOD COUNT 10.6 10^3/ul (4.8-10.8)
[2017-11-15 05:43] LABS: ANION GAP 19 (8-16); BLOOD UREA NITROGEN 58 mg/dl (7-20); CALCIUM 8.9 mg/dl (8.4-10.2); CARBON DIOXIDE 28 mmol/L (21-31); CHLORIDE 102 mmol/L (97-110); CREATININE 3.81 mg/dl (0.61-1.24); GLUCOSE 112 mg/dl (70-220); PHOSPHORUS 4.1 mg/dl (2.5-4.9); SODIUM 145 mmol/L (135-144)
[2017-11-15] MEDS: PANTOPRAZOLE 40 MG INJ IV ×2 (06:42→18:46)
[2017-11-15] MEDS: MIDODRINE 5 MG TAB PO ×3 (08:36→21:55)
[2017-11-15] MEDS: MEROPENEM 500MG/50 ML (PMX) 50 ML IVPB ×2 (08:36→21:06)
[2017-11-15] MEDS: NYSTATIN 15 GM POWDER BTL TOP ×2 (08:36→21:06)
[2017-11-15] MEDS: COLLAGENASE 30 GM TUBE TOP (08:36)
[2017-11-15] MEDS: SENNA TAB PO (08:45)
[2017-11-15] MEDS: DOCUSATE SODIUM 10 MG/ML (10ML CUP) GTB ×2 (08:45→21:05)
[2017-11-15] MEDS: VANCOMYCIN 1 GM 250 ML IVPB (18:46)
[2017-11-15] MEDS: EPOETIN 10000 UNITS/1 ML INJ (ESRD) SC (18:48)
[2017-11-16] MEDS: DIPHENHYDRAMINE 50 MG INJ INJ ×2 (00:21→11:15)
[2017-11-16] MEDS: ONDANSETRON 4 MG INJ IV ×3 (00:21→08:52)
[2017-11-16] MEDS: PANTOPRAZOLE 40 MG INJ IV ×2 (05:01→17:06)
[2017-11-16] MEDS: INSULIN ASPART [NOVOLOG] 3 ML PEN SC ×3 (05:02→17:06)
[2017-11-16 05:31] LABS: WHITE BLOOD COUNT 19.6 10^3/ul (4.8-10.8)
[2017-11-16 05:31] LABS: ADD MAN DIFF? NO; BASOPHIL # 0.1 10^3/ul (0.0-0.1); BASOPHILS % 0.3 % (0.0-2.0); EOSINOPHILS # 0.7 10^3/ul (0.0-0.5); EOSINOPHILS % 3.7 % (0.0-7.0); HEMATOCRIT 29.4 % (42.0-52.0); HEMOGLOBIN 8.9 g/dl (14.0-18.0); LYMPHOCYTES # 1.2 10^3/ul (0.8-2.9); MEAN CORPUSCULAR HGB CONC 30.3 g/dl (32.0-37.0); MEAN PLATELET VOLUME 10.5 fl (7.4-10.4); MONOCYTE # 1.2 10^3/ul (0.3-0.9); MONOCYTES % 5.9 % (0.0-11.0); NEUTROPHIL # 16.3 10^3/ul (1.6-7.5); NEUTROPHILS % 83.4 % (39.0-77.0); PLATELET COUNT 189 10^3/UL (140-415); RED BLOOD COUNT 2.97 10^6/ul (4.70-6.10); RED CELL DISTRIBUTION WIDTH 18.7 % (11.5-14.5)
[2017-11-16 06:31] LABS: ANION GAP 18 (8-16); BLOOD UREA NITROGEN 40 mg/dl (7-20); CALCIUM 9.2 mg/dl (8.4-10.2); CARBON DIOXIDE 30 mmol/L (21-31); CHLORIDE 100 mmol/L (97-110); CREATININE 2.92 mg/dl (0.61-1.24); GLUCOSE 100 mg/dl (70-220); MAGNESIUM 1.9 mg/dl (1.7-2.5); PHOSPHORUS 3.5 mg/dl (2.5-4.9); POTASSIUM 4.4 mmol/L (3.5-5.1); SODIUM 144 mmol/L (135-144)
[2017-11-16] MEDS: SENNA TAB PO (08:53)
[2017-11-16] MEDS: DOCUSATE SODIUM 10 MG/ML (10ML CUP) GTB ×2 (08:53→21:00)
[2017-11-16] MEDS: MEROPENEM 500MG/50 ML (PMX) 50 ML IVPB ×2 (09:17→21:55)
[2017-11-16] MEDS: ACETAMINOPHEN 650MG/20.3ML CUP PO ×2 (09:17→18:48)
[2017-11-16] MEDS: NYSTATIN 15 GM POWDER BTL TOP ×2 (09:18→21:55)
[2017-11-16] MEDS: COLLAGENASE 30 GM TUBE TOP (09:18)
[2017-11-16] MEDS: MIDODRINE 5 MG TAB PO ×3 (09:18→21:55)
[2017-11-16 16:26] LABS: PROCALCITONIN 1.52 ng/mL (<0.10)
[2017-11-17 05:46] LABS: ADD MAN DIFF? NO
[2017-11-17] MEDS: PANTOPRAZOLE 40 MG INJ IV ×2 (05:48→17:53)
[2017-11-17] MEDS: INSULIN ASPART [NOVOLOG] 3 ML PEN SC ×4 (05:49→17:53)
[2017-11-17 05:53] LABS: BASOPHIL # 0.1 10^3/ul (0.0-0.1); BASOPHILS % 0.4 % (0.0-2.0); EOSINOPHILS # 0.9 10^3/ul (0.0-0.5); EOSINOPHILS % 5.9 % (0.0-7.0); HEMATOCRIT 27.6 % (42.0-52.0); HEMOGLOBIN 8.3 g/dl (14.0-18.0); LYMPHOCYTES # 1.1 10^3/ul (0.8-2.9); LYMPHOCYTES % 7.6 % (15.0-51.0); MEAN CORPUSCULAR HEMOGLOBIN 29.9 pg (29.0-33.0); MEAN CORPUSCULAR HGB CONC 30.1 g/dl (32.0-37.0); MEAN CORPUSCULAR VOLUME 99.3 fl (82.0-101.0); MEAN PLATELET VOLUME 10.6 fl (7.4-10.4); MONOCYTES % 6.9 % (0.0-11.0); NEUTROPHIL # 11.8 10^3/ul (1.6-7.5); NEUTROPHILS % 78.5 % (39.0-77.0); PLATELET COUNT 173 10^3/UL (140-415); RED BLOOD COUNT 2.78 10^6/ul (4.70-6.10); RED CELL DISTRIBUTION WIDTH 18.4 % (11.5-14.5)
[2017-11-17 06:17] LABS: ANION GAP 20 (8-16); BLOOD UREA NITROGEN 49 mg/dl (7-20); CALCIUM 9.4 mg/dl (8.4-10.2); CARBON DIOXIDE 28 mmol/L (21-31); CHLORIDE 100 mmol/L (97-110); CREATININE 3.65 mg/dl (0.61-1.24); GLUCOSE 112 mg/dl (70-220); MAGNESIUM 1.9 mg/dl (1.7-2.5); PHOSPHORUS 4.1 mg/dl (2.5-4.9); SODIUM 144 mmol/L (135-144)
[2017-11-17] MEDS: DOCUSATE SODIUM 10 MG/ML (10ML CUP) GTB ×2 (09:00→21:00)
[2017-11-17] MEDS: SENNA TAB PO (09:00)
[2017-11-17 09:28] LABS: HEPATITIS B SURFACE ANTIGEN NEGATIVE (NEGATIVE)
[2017-11-17 09:45] LABS: HEPATITIS B SURFACE ANTIBODY POSITIVE (NEGATIVE)
[2017-11-17] MEDS: MIDODRINE 5 MG TAB PO ×3 (10:18→21:22)
[2017-11-17] MEDS: MEROPENEM 500MG/50 ML (PMX) 50 ML IVPB ×2 (13:56→21:53)
[2017-11-17] MEDS: NYSTATIN 15 GM POWDER BTL TOP ×2 (13:57→21:22)
[2017-11-17] MEDS: COLLAGENASE 30 GM TUBE TOP (13:57)
[2017-11-18] MEDS: INSULIN ASPART [NOVOLOG] 3 ML PEN SC ×4 (05:55→17:20)
[2017-11-18] MEDS: PANTOPRAZOLE 40 MG INJ IV ×2 (05:56→17:14)
[2017-11-18 06:59] LABS: ADD MAN DIFF? NO
[2017-11-18 07:02] LABS: WHITE BLOOD COUNT 12.4 10^3/ul (4.8-10.8)
[2017-11-18 07:02] LABS: BASOPHILS % 0.3 % (0.0-2.0); EOSINOPHILS # 0.9 10^3/ul (0.0-0.5); EOSINOPHILS % 7.3 % (0.0-7.0); HEMATOCRIT 25.9 % (42.0-52.0); HEMOGLOBIN 7.7 g/dl (14.0-18.0); LYMPHOCYTES # 1.1 10^3/ul (0.8-2.9); LYMPHOCYTES % 8.9 % (15.0-51.0); MEAN CORPUSCULAR HEMOGLOBIN 29.5 pg (29.0-33.0); MEAN CORPUSCULAR HGB CONC 29.7 g/dl (32.0-37.0); MEAN CORPUSCULAR VOLUME 99.2 fl (82.0-101.0); MEAN PLATELET VOLUME 10.5 fl (7.4-10.4); MONOCYTE # 0.9 10^3/ul (0.3-0.9); MONOCYTES % 6.9 % (0.0-11.0); NEUTROPHIL # 9.4 10^3/ul (1.6-7.5); NEUTROPHILS % 75.8 % (39.0-77.0); PLATELET COUNT 154 10^3/UL (140-415); RED BLOOD COUNT 2.61 10^6/ul (4.70-6.10); RED CELL DISTRIBUTION WIDTH 18.1 % (11.5-14.5)
[2017-11-18 07:21] LABS: ANION GAP 17 (8-16); BLOOD UREA NITROGEN 35 mg/dl (7-20); CALCIUM 9.2 mg/dl (8.4-10.2); CARBON DIOXIDE 29 mmol/L (21-31); CHLORIDE 100 mmol/L (97-110); GLUCOSE 113 mg/dl (70-220); PHOSPHORUS 3.3 mg/dl (2.5-4.9); POTASSIUM 3.7 mmol/L (3.5-5.1); SODIUM 142 mmol/L (135-144)
[2017-11-18 08:07] LABS: IRON 29 ug/dl (35-150)
[2017-11-18] MEDS: MIDODRINE 5 MG TAB PO ×3 (08:15→21:15)
[2017-11-18 08:16] LABS: % IRON SATURATION 15 % SAT (22-52); TOTAL IRON BINDING CAPACITY 195 ug/dl (241-421)
[2017-11-18] MEDS: SENNA TAB PO (08:16)
[2017-11-18] MEDS: DOCUSATE SODIUM 10 MG/ML (10ML CUP) GTB ×2 (08:35→21:00)
[2017-11-18] MEDS: MEROPENEM 500MG/50 ML (PMX) 50 ML IVPB ×2 (09:13→21:19)
[2017-11-18] MEDS: COLLAGENASE 30 GM TUBE TOP (09:17)
[2017-11-18] MEDS: NYSTATIN 15 GM POWDER BTL TOP ×2 (09:17→21:15)
[2017-11-18] MEDS ORDERED: NORepinephrine 8MG/250 ML (PMX 250 ML IV (12:30)
[2017-11-18 14:36] LABS: HEMATOCRIT 25.9 % (42.0-52.0); HEMOGLOBIN 7.8 g/dl (14.0-18.0)
[2017-11-18] MEDS: SOD FERRIC GLUC COMPLX 125 MG in SOD CHLORIDE 0.9% 100 ML IVPB (17:10)
[2017-11-18] MEDS: EPOETIN 10000 UNITS/1 ML INJ (ESRD) SC (17:17)
[2017-11-19] MEDS: INSULIN ASPART [NOVOLOG] 3 ML PEN SC ×5 (05:20→23:39)
[2017-11-19] MEDS: PANTOPRAZOLE 40 MG INJ IV ×2 (05:20→17:47)
[2017-11-19 05:52] LABS: ADD MAN DIFF? NO
[2017-11-19 05:58] LABS: BASOPHIL # 0.1 10^3/ul (0.0-0.1); BASOPHILS % 0.4 % (0.0-2.0); EOSINOPHILS # 0.9 10^3/ul (0.0-0.5); EOSINOPHILS % 6.5 % (0.0-7.0); HEMATOCRIT 24.6 % (42.0-52.0); HEMOGLOBIN 7.4 g/dl (14.0-18.0); LYMPHOCYTES # 1.2 10^3/ul (0.8-2.9); LYMPHOCYTES % 8.7 % (15.0-51.0); MEAN CORPUSCULAR HEMOGLOBIN 29.7 pg (29.0-33.0); MEAN CORPUSCULAR HGB CONC 30.1 g/dl (32.0-37.0); MEAN CORPUSCULAR VOLUME 98.8 fl (82.0-101.0); MEAN PLATELET VOLUME 11.1 fl (7.4-10.4); MONOCYTE # 0.7 10^3/ul (0.3-0.9); MONOCYTES % 5.3 % (0.0-11.0); NEUTROPHIL # 10.6 10^3/ul (1.6-7.5); NEUTROPHILS % 78.5 % (39.0-77.0); PLATELET COUNT 149 10^3/UL (140-415); RED BLOOD COUNT 2.49 10^6/ul (4.70-6.10); RED CELL DISTRIBUTION WIDTH 17.9 % (11.5-14.5)
[2017-11-19 05:58] LABS: WHITE BLOOD COUNT 13.5 10^3/ul (4.8-10.8)
[2017-11-19 06:33] LABS: ANION GAP 16 (8-16); BLOOD UREA NITROGEN 46 mg/dl (7-20); CALCIUM 9.1 mg/dl (8.4-10.2); CARBON DIOXIDE 29 mmol/L (21-31); CHLORIDE 101 mmol/L (97-110); CREATININE 3.44 mg/dl (0.61-1.24); GLUCOSE 98 mg/dl (70-220); PHOSPHORUS 3.8 mg/dl (2.5-4.9); POTASSIUM 3.8 mmol/L (3.5-5.1); SODIUM 142 mmol/L (135-144)
[2017-11-19] MEDS: DOCUSATE SODIUM 10 MG/ML (10ML CUP) GTB ×2 (08:21→22:09)
[2017-11-19] MEDS: SENNA TAB PO (08:21)
[2017-11-19] MEDS: MIDODRINE 5 MG TAB PO ×3 (08:27→22:10)
[2017-11-19] MEDS: COLLAGENASE 30 GM TUBE TOP (08:27)
[2017-11-19] MEDS: MEROPENEM 500MG/50 ML (PMX) 50 ML IVPB ×2 (08:28→22:10)
[2017-11-19] MEDS: NYSTATIN 15 GM POWDER BTL TOP ×2 (08:28→22:10)
[2017-11-19 10:59] LABS: IMMEDIATE SPIN CROSSMATCH 1 1
[2017-11-19] MEDS ORDERED: TOBRAMYCIN IV PER PHARMACY XX (12:30)
[2017-11-19] MEDS: TOBRAMYCIN 160 MG in DEXTROSE 5% 100 ML IVPB (15:22)
[2017-11-19] MEDS: EPOETIN 10000 UNITS/1 ML INJ (ESRD) SC (15:49)
[2017-11-19] MEDS: SOD FERRIC GLUC COMPLX 125 MG in SOD CHLORIDE 0.9% 100 ML IVPB (16:54)
[2017-11-19 18:05] LABS: VANCOMYCIN,TROUGH 11.4 ug/ml (10.0-20.0)
[2017-11-19] MEDS: VANCOMYCIN 1 GM 250 ML IVPB (18:29)
[2017-11-20] MEDS: PANTOPRAZOLE 40 MG INJ IV ×2 (05:18→17:22)
[2017-11-20 05:30] LABS: ADD MAN DIFF? NO
[2017-11-20 05:37] LABS: BASOPHIL # 0.1 10^3/ul (0.0-0.1); BASOPHILS % 0.6 % (0.0-2.0); EOSINOPHILS # 0.9 10^3/ul (0.0-0.5); EOSINOPHILS % 8.3 % (0.0-7.0); HEMATOCRIT 28.1 % (42.0-52.0); HEMOGLOBIN 8.6 g/dl (14.0-18.0); LYMPHOCYTES # 1.2 10^3/ul (0.8-2.9); LYMPHOCYTES % 10.2 % (15.0-51.0); MEAN CORPUSCULAR HEMOGLOBIN 29.6 pg (29.0-33.0); MEAN CORPUSCULAR HGB CONC 30.6 g/dl (32.0-37.0); MEAN CORPUSCULAR VOLUME 96.6 fl (82.0-101.0); MEAN PLATELET VOLUME 11.5 fl (7.4-10.4); MONOCYTE # 0.8 10^3/ul (0.3-0.9); MONOCYTES % 7.4 % (0.0-11.0); NEUTROPHIL # 8.2 10^3/ul (1.6-7.5); NEUTROPHILS % 72.4 % (39.0-77.0); PLATELET COUNT 166 10^3/UL (140-415); RED BLOOD COUNT 2.91 10^6/ul (4.70-6.10); RED CELL DISTRIBUTION WIDTH 18.1 % (11.5-14.5)
[2017-11-20 05:37] LABS: WHITE BLOOD COUNT 11.3 10^3/ul (4.8-10.8)
[2017-11-20 05:48] LABS: ANION GAP 17 (8-16); BLOOD UREA NITROGEN 34 mg/dl (7-20); CALCIUM 8.8 mg/dl (8.4-10.2); CARBON DIOXIDE 29 mmol/L (21-31); CHLORIDE 100 mmol/L (97-110); CREATININE 2.68 mg/dl (0.61-1.24); GLUCOSE 143 mg/dl (70-220); MAGNESIUM 1.9 mg/dl (1.7-2.5); PHOSPHORUS 3.2 mg/dl (2.5-4.9); POTASSIUM 3.8 mmol/L (3.5-5.1); SODIUM 142 mmol/L (135-144)
[2017-11-20] MEDS: INSULIN ASPART [NOVOLOG] 3 ML PEN SC ×3 (06:00→17:22)
[2017-11-20] MEDS: DOCUSATE SODIUM 10 MG/ML (10ML CUP) GTB ×2 (09:00→20:47)
[2017-11-20] MEDS: MIDODRINE 5 MG TAB PO ×3 (09:04→20:48)
[2017-11-20] MEDS: MEROPENEM 500MG/50 ML (PMX) 50 ML IVPB ×2 (09:05→20:47)
[2017-11-20] MEDS: SENNA TAB PO (09:05)
[2017-11-20] MEDS: NYSTATIN 15 GM POWDER BTL TOP ×2 (09:06→20:48)
[2017-11-20] MEDS: COLLAGENASE 30 GM TUBE TOP (09:06)
[2017-11-20] MEDS: DIPHENHYDRAMINE 50 MG INJ INJ (13:26)
[2017-11-20] MEDS: DIATR MEGLU/DIATRIZOATE SODIUM 120 ML BTL (16:02)
[2017-11-20] MEDS: EPOETIN 10000 UNITS/1 ML INJ (ESRD) SC (18:12)
[2017-11-20] MEDS: SOD FERRIC GLUC COMPLX 125 MG in SOD CHLORIDE 0.9% 100 ML IVPB (18:13)
[2017-11-20] MEDS: MUPIROCIN 2% 22 GM OINT TOP (20:48)
[2017-11-21 05:44] LABS: ADD MAN DIFF? NO
[2017-11-21 05:52] LABS: BASOPHIL # 0.1 10^3/ul (0.0-0.1); BASOPHILS % 0.7 % (0.0-2.0); EOSINOPHILS # 1.2 10^3/ul (0.0-0.5); EOSINOPHILS % 11.2 % (0.0-7.0); HEMATOCRIT 28.4 % (42.0-52.0); HEMOGLOBIN 8.6 g/dl (14.0-18.0); LYMPHOCYTES % 9.1 % (15.0-51.0); MEAN CORPUSCULAR HEMOGLOBIN 29.5 pg (29.0-33.0); MEAN CORPUSCULAR HGB CONC 30.3 g/dl (32.0-37.0); MEAN CORPUSCULAR VOLUME 97.3 fl (82.0-101.0); MEAN PLATELET VOLUME 11.2 fl (7.4-10.4); MONOCYTE # 0.7 10^3/ul (0.3-0.9); NEUTROPHIL # 7.6 10^3/ul (1.6-7.5); NEUTROPHILS % 71.1 % (39.0-77.0); PLATELET COUNT 163 10^3/UL (140-415); RED BLOOD COUNT 2.92 10^6/ul (4.70-6.10); RED CELL DISTRIBUTION WIDTH 18.1 % (11.5-14.5)
[2017-11-21 05:52] LABS: WHITE BLOOD COUNT 10.6 10^3/ul (4.8-10.8)
[2017-11-21] MEDS: INSULIN ASPART [NOVOLOG] 3 ML PEN SC ×4 (06:00→17:19)
[2017-11-21 06:07] LABS: ANION GAP 16 (8-16); BLOOD UREA NITROGEN 43 mg/dl (7-20); CARBON DIOXIDE 29 mmol/L (21-31); CHLORIDE 101 mmol/L (97-110); CREATININE 3.35 mg/dl (0.61-1.24); GLUCOSE 102 mg/dl (70-220); MAGNESIUM 1.9 mg/dl (1.7-2.5); PHOSPHORUS 3.8 mg/dl (2.5-4.9); POTASSIUM 3.8 mmol/L (3.5-5.1); SODIUM 142 mmol/L (135-144)
[2017-11-21] MEDS: PANTOPRAZOLE 40 MG INJ IV ×2 (06:11→17:19)
[2017-11-21] MEDS: SENNA TAB PO (09:00)
[2017-11-21] MEDS: DOCUSATE SODIUM 10 MG/ML (10ML CUP) GTB (09:00)
[2017-11-21] MEDS: MUPIROCIN 2% 22 GM OINT TOP ×2 (09:30→20:56)
[2017-11-21] MEDS: COLLAGENASE 30 GM TUBE TOP (09:30)
[2017-11-21] MEDS: NYSTATIN 15 GM POWDER BTL TOP ×2 (09:31→20:56)
[2017-11-21] MEDS: MIDODRINE 5 MG TAB PO ×3 (09:31→20:53)
[2017-11-21] MEDS: ALBUTEROL HFA 8 GM INHALER INH ×3 (10:22→19:43)
[2017-11-21] MEDS: MEROPENEM 500MG/50 ML (PMX) 50 ML IVPB ×2 (12:53→20:42)
[2017-11-21] MEDS: DIPHENHYDRAMINE 50 MG INJ INJ ×2 (13:42→19:12)
[2017-11-21] MEDS: TOBRAMYCIN 80 MG in SOD CHLORIDE 0.9% 50 ML IVPB (13:42)
[2017-11-21] MEDS ORDERED: ALBUTEROL 0.083% (NEB) 2.5 MG/3 ML AMP HHN (14:00)
[2017-11-21] MEDS: SOD FERRIC GLUC COMPLX 125 MG in SOD CHLORIDE 0.9% 100 ML IVPB (16:20)
[2017-11-21] MEDS: ACETAMINOPHEN 650MG/20.3ML CUP PO (18:16)
[2017-11-22] MEDS: ALBUTEROL HFA 8 GM INHALER INH ×4 (01:23→19:05)
[2017-11-22] MEDS: DIPHENHYDRAMINE 50 MG INJ INJ (03:33)
[2017-11-22] MEDS: INSULIN ASPART [NOVOLOG] 3 ML PEN SC ×4 (06:00→22:00)
[2017-11-22] MEDS: PANTOPRAZOLE 40 MG INJ IV ×2 (06:02→18:04)
[2017-11-22 06:14] LABS: ANION GAP 13 (8-16)
[2017-11-22 06:15] LABS: BLOOD UREA NITROGEN 30 mg/dl (7-20); CALCIUM 8.8 mg/dl (8.4-10.2); CARBON DIOXIDE 34 mmol/L (21-31); CHLORIDE 101 mmol/L (97-110); CREATININE 2.72 mg/dl (0.61-1.24); GLUCOSE 98 mg/dl (70-220); POTASSIUM 3.7 mmol/L (3.5-5.1); SODIUM 144 mmol/L (135-144)
[2017-11-22 08:14] LABS: ADD MAN DIFF? NO
[2017-11-22] MEDS: MIDODRINE 5 MG TAB PO ×3 (08:52→20:32)
[2017-11-22] MEDS: MEROPENEM 500MG/50 ML (PMX) 50 ML IVPB ×2 (08:52→20:35)
[2017-11-22] MEDS: MUPIROCIN 2% 22 GM OINT TOP ×2 (08:53→20:37)
[2017-11-22] MEDS: NYSTATIN 15 GM POWDER BTL TOP ×2 (08:53→20:36)
[2017-11-22] MEDS: COLLAGENASE 30 GM TUBE TOP (08:53)
[2017-11-22 10:01] LABS: WHITE BLOOD COUNT 9.6 10^3/ul (4.8-10.8)
[2017-11-22 10:01] LABS: HEMATOCRIT 26.9 % (42.0-52.0); HEMOGLOBIN 8.2 g/dl (14.0-18.0); MEAN CORPUSCULAR HEMOGLOBIN 29.6 pg (29.0-33.0); MEAN CORPUSCULAR HGB CONC 30.5 g/dl (32.0-37.0); MEAN CORPUSCULAR VOLUME 97.1 fl (82.0-101.0); RED BLOOD COUNT 2.77 10^6/ul (4.70-6.10)
[2017-11-22 10:02] LABS: BASOPHILS % 0.6 % (0.0-2.0); MEAN PLATELET VOLUME 11.4 fl (7.4-10.4); MONOCYTES % 9.2 % (0.0-11.0); NEUTROPHILS % 66.4 % (39.0-77.0); NUCLEATED RED BLOOD CELLS% 0.8 /100WBC (0.0-0.0); PLATELET COUNT 164 10^3/UL (140-415); RED CELL DISTRIBUTION WIDTH 18.2 % (11.5-14.5)
[2017-11-22 10:03] LABS: BASOPHIL # 0.1 10^3/ul (0.0-0.1); EOSINOPHILS # 1.2 10^3/ul (0.0-0.5); LYMPHOCYTES # 1.1 10^3/ul (0.8-2.9); MONOCYTE # 0.9 10^3/ul (0.3-0.9); NEUTROPHIL # 6.4 10^3/ul (1.6-7.5)
[2017-11-22] MEDS: SOD FERRIC GLUC COMPLX 125 MG in SOD CHLORIDE 0.9% 100 ML IVPB (18:04)
[2017-11-22] MEDS: EPOETIN 10000 UNITS/1 ML INJ (ESRD) SC (18:05)
[2017-11-23] MEDS: ALBUTEROL HFA 8 GM INHALER INH ×4 (01:10→20:07)
[2017-11-23 05:16] LABS: AADO2 Arterial 117.8 mmHg (7.0-24.0); Allen Test ACCEPTAB; Arterial Base Excess 4.7 mmol/L (-3.0-3); Arterial Blood Gas Oxygen Sat 96.3 mmHG (95.0-98.0); Arterial COHb 1.8 % (0.0-3.0); Arterial Fraction of Oxyhgb 94.3 % (93.0-99.0); Arterial HCO3 29.1 mmol/L (22.0-26.0); Arterial MetHb 0.3 % (0.0-1.5); Arterial Total Hemglobin 6.6 g/dl (12.0-18.0); Arterial pCO2 43.3 mmhg (35-45); Blood Gas Low PEEP Setting 0 cmH2O; MODE VENT - AC; Site Right Radial
[2017-11-23 05:31] LABS: ADD MAN DIFF? NO
[2017-11-23 05:35] LABS: BASOPHIL # 0.1 10^3/ul (0.0-0.1); BASOPHILS % 0.7 % (0.0-2.0); EOSINOPHILS # 1.4 10^3/ul (0.0-0.5); EOSINOPHILS % 12.9 % (0.0-7.0); HEMATOCRIT 28.8 % (42.0-52.0); HEMOGLOBIN 8.6 g/dl (14.0-18.0); LYMPHOCYTES # 1.1 10^3/ul (0.8-2.9); LYMPHOCYTES % 10.2 % (15.0-51.0); MEAN CORPUSCULAR HGB CONC 29.9 g/dl (32.0-37.0); MEAN PLATELET VOLUME 10.4 fl (7.4-10.4); MONOCYTE # 0.7 10^3/ul (0.3-0.9); NEUTROPHIL # 7.2 10^3/ul (1.6-7.5); NEUTROPHILS % 68.3 % (39.0-77.0); PLATELET COUNT 161 10^3/UL (140-415); RED BLOOD COUNT 2.97 10^6/ul (4.70-6.10); RED CELL DISTRIBUTION WIDTH 18.1 % (11.5-14.5)
[2017-11-23 05:35] LABS: WHITE BLOOD COUNT 10.6 10^3/ul (4.8-10.8)
[2017-11-23] MEDS: PANTOPRAZOLE 40 MG INJ IV ×2 (05:40→17:31)
[2017-11-23] MEDS: INSULIN ASPART [NOVOLOG] 3 ML PEN SC (05:43)
[2017-11-23 05:57] LABS: ANION GAP 18 (8-16); BLOOD UREA NITROGEN 40 mg/dl (7-20); CALCIUM 8.9 mg/dl (8.4-10.2); CARBON DIOXIDE 31 mmol/L (21-31); CHLORIDE 100 mmol/L (97-110); CREATININE 3.31 mg/dl (0.61-1.24); GLUCOSE 127 mg/dl (70-220); MAGNESIUM 1.9 mg/dl (1.7-2.5); PHOSPHORUS 3.5 mg/dl (2.5-4.9); POTASSIUM 3.9 mmol/L (3.5-5.1); SODIUM 145 mmol/L (135-144)
[2017-11-23 05:58] LABS: LACTIC ACID 1.5 mmol/L (0.5-2.0)
[2017-11-23] MEDS: MIDODRINE 5 MG TAB PO ×3 (08:32→21:44)
[2017-11-23] MEDS: NYSTATIN 15 GM POWDER BTL TOP ×2 (08:32→21:44)
[2017-11-23] MEDS: MEROPENEM 500MG/50 ML (PMX) 50 ML IVPB ×2 (08:32→21:43)
[2017-11-23] MEDS: MUPIROCIN 2% 22 GM OINT TOP ×2 (08:33→21:45)
[2017-11-23] MEDS: COLLAGENASE 30 GM TUBE TOP (08:33)
[2017-11-23] MEDS: VANCOMYCIN 1.25 GM in SOD CHLORIDE 0.9% 250 ML IVPB (17:32)
[2017-11-24] MEDS: DIPHENHYDRAMINE 50 MG INJ INJ (00:14)
[2017-11-24] MEDS: ALBUTEROL HFA 8 GM INHALER INH ×4 (01:55→19:14)
[2017-11-24 05:16] LABS: AADO2 Arterial 98.8 mmHg (7.0-24.0); Allen Test ACCEPTAB; Arterial Base Excess 5.8 mmol/L (-3.0-3); Arterial Blood Gas Oxygen Sat 93.7 mmHG (95.0-98.0); Arterial COHb 1.5 % (0.0-3.0); Arterial Fraction of Oxyhgb 92.2 % (93.0-99.0); Arterial HCO3 30.3 mmol/L (22.0-26.0); Arterial MetHb 0.1 % (0.0-1.5); Arterial Total Hemglobin 12.4 g/dl (12.0-18.0); Arterial pCO2 43.8 mmhg (35-45); Blood Gas Low PEEP Setting 0 cmH2O; MODE VENT - AC; Site Right Radial
[2017-11-24] MEDS: PANTOPRAZOLE 40 MG INJ IV ×2 (06:44→18:32)
[2017-11-24 06:57] LABS: ANION GAP 19 (8-16); BLOOD UREA NITROGEN 54 mg/dl (7-20); CALCIUM 9.1 mg/dl (8.4-10.2); CARBON DIOXIDE 29 mmol/L (21-31); CHLORIDE 100 mmol/L (97-110); GLUCOSE 91 mg/dl (70-220); MAGNESIUM 1.9 mg/dl (1.7-2.5); POTASSIUM 4.5 mmol/L (3.5-5.1); SODIUM 143 mmol/L (135-144)
[2017-11-24 07:04] LABS: LACTIC ACID 1.3 mmol/L (0.5-2.0)
[2017-11-24 08:08] LABS: WHITE BLOOD COUNT 9.4 10^3/ul (4.8-10.8)
[2017-11-24 08:08] LABS: HEMATOCRIT 27.1 % (42.0-52.0); HEMOGLOBIN 8.2 g/dl (14.0-18.0); MEAN CORPUSCULAR HEMOGLOBIN 29.7 pg (29.0-33.0); MEAN CORPUSCULAR HGB CONC 30.3 g/dl (32.0-37.0); MEAN CORPUSCULAR VOLUME 98.2 fl (82.0-101.0); MEAN PLATELET VOLUME 11.2 fl (7.4-10.4); PLATELET COUNT 146 10^3/UL (140-415); RED BLOOD COUNT 2.76 10^6/ul (4.70-6.10); RED CELL DISTRIBUTION WIDTH 18.1 % (11.5-14.5)
[2017-11-24 08:09] LABS: ADD MAN DIFF? YES
[2017-11-24] MEDS: MIDODRINE 5 MG TAB PO ×3 (10:46→21:25)
[2017-11-24] MEDS: MEROPENEM 500MG/50 ML (PMX) 50 ML IVPB ×2 (10:46→21:25)
[2017-11-24] MEDS: NYSTATIN 15 GM POWDER BTL TOP ×2 (10:47→21:26)
[2017-11-24] MEDS: COLLAGENASE 30 GM TUBE TOP (10:47)
[2017-11-24] MEDS: MUPIROCIN 2% 22 GM OINT TOP ×2 (10:47→21:26)
[2017-11-24] MEDS: TOBRAMYCIN 80 MG in SOD CHLORIDE 0.9% 50 ML IVPB (18:33)
[2017-11-25] MEDS: ALBUTEROL HFA 8 GM INHALER INH ×4 (02:08→19:27)
[2017-11-25] MEDS: DIPHENHYDRAMINE 50 MG INJ INJ ×3 (05:22→23:29)
[2017-11-25] MEDS: PANTOPRAZOLE 40 MG INJ IV ×2 (05:30→17:28)
[2017-11-25 05:54] LABS: ADD MAN DIFF? NO
[2017-11-25 06:04] LABS: WHITE BLOOD COUNT 9.1 10^3/ul (4.8-10.8)
[2017-11-25 06:04] LABS: BASOPHIL # 0.1 10^3/ul (0.0-0.1); BASOPHILS % 0.8 % (0.0-2.0); EOSINOPHILS # 1.8 10^3/ul (0.0-0.5); EOSINOPHILS % 19.5 % (0.0-7.0); HEMATOCRIT 29.3 % (42.0-52.0); HEMOGLOBIN 8.9 g/dl (14.0-18.0); LYMPHOCYTES # 1.3 10^3/ul (0.8-2.9); LYMPHOCYTES % 13.9 % (15.0-51.0); MEAN CORPUSCULAR HEMOGLOBIN 29.6 pg (29.0-33.0); MEAN CORPUSCULAR HGB CONC 30.4 g/dl (32.0-37.0); MEAN CORPUSCULAR VOLUME 97.3 fl (82.0-101.0); MEAN PLATELET VOLUME 11.2 fl (7.4-10.4); MONOCYTE # 0.6 10^3/ul (0.3-0.9); MONOCYTES % 6.9 % (0.0-11.0); NEUTROPHIL # 5.3 10^3/ul (1.6-7.5); PLATELET COUNT 161 10^3/UL (140-415); RED BLOOD COUNT 3.01 10^6/ul (4.70-6.10); RED CELL DISTRIBUTION WIDTH 17.9 % (11.5-14.5)
[2017-11-25 06:48] LABS: ANION GAP 15 (8-16); BLOOD UREA NITROGEN 37 mg/dl (7-20); CARBON DIOXIDE 32 mmol/L (21-31); CHLORIDE 101 mmol/L (97-110); CREATININE 3.04 mg/dl (0.61-1.24); GLUCOSE 85 mg/dl (70-220); MAGNESIUM 1.9 mg/dl (1.7-2.5); PHOSPHORUS 3.3 mg/dl (2.5-4.9); POTASSIUM 4.2 mmol/L (3.5-5.1); SODIUM 144 mmol/L (135-144)
[2017-11-25] MEDS: MIDODRINE 5 MG TAB PO ×3 (09:28→20:52)
[2017-11-25] MEDS: MEROPENEM 500MG/50 ML (PMX) 50 ML IVPB ×2 (09:28→20:50)
[2017-11-25] MEDS: MUPIROCIN 2% 22 GM OINT TOP ×2 (09:29→20:52)
[2017-11-25] MEDS: COLLAGENASE 30 GM TUBE TOP (09:29)
[2017-11-25] MEDS: NYSTATIN 15 GM POWDER BTL TOP ×2 (09:29→20:52)
[2017-11-25] MEDS: ACETAMINOPHEN 650MG/20.3ML CUP PO ×2 (10:15→23:29)
[2017-11-25] MEDS: EPOETIN ALFA 1,000 UNITS/0.1 ML VIAL SC (17:28)
[2017-11-26] MEDS: ALBUTEROL HFA 8 GM INHALER INH ×4 (01:03→21:05)
[2017-11-26 01:24] LABS: AADO2 Arterial 195.2 mmHg (7.0-24.0); Arterial Base Excess 0.1 mmol/L (-3.0-3); Arterial Blood Gas Oxygen Sat 99.8 mmHG (95.0-98.0); Arterial COHb 0.3 % (0.0-3.0); Arterial Fraction of Oxyhgb 99.3 % (93.0-99.0); Arterial HCO3 24.4 mmol/L (22.0-26.0); Arterial MetHb 0.2 % (0.0-1.5); Arterial pCO2 38.2 mmhg (35-45); MODE VENT - AC; Site A-Line
[2017-11-26 05:21] LABS: ADD MAN DIFF? NO
[2017-11-26 05:24] LABS: WHITE BLOOD COUNT 10.3 10^3/ul (4.8-10.8)
[2017-11-26 05:24] LABS: BASOPHIL # 0.1 10^3/ul (0.0-0.1); BASOPHILS % 0.8 % (0.0-2.0); EOSINOPHILS # 1.8 10^3/ul (0.0-0.5); EOSINOPHILS % 17.8 % (0.0-7.0); HEMATOCRIT 28.9 % (42.0-52.0); HEMOGLOBIN 8.8 g/dl (14.0-18.0); LYMPHOCYTES # 1.1 10^3/ul (0.8-2.9); LYMPHOCYTES % 10.4 % (15.0-51.0); MEAN CORPUSCULAR HEMOGLOBIN 29.6 pg (29.0-33.0); MEAN CORPUSCULAR HGB CONC 30.4 g/dl (32.0-37.0); MEAN CORPUSCULAR VOLUME 97.3 fl (82.0-101.0); MEAN PLATELET VOLUME 11.5 fl (7.4-10.4); MONOCYTE # 0.6 10^3/ul (0.3-0.9); MONOCYTES % 5.7 % (0.0-11.0); NEUTROPHIL # 6.7 10^3/ul (1.6-7.5); NEUTROPHILS % 64.7 % (39.0-77.0); PLATELET COUNT 167 10^3/UL (140-415); RED BLOOD COUNT 2.97 10^6/ul (4.70-6.10); RED CELL DISTRIBUTION WIDTH 17.5 % (11.5-14.5)
[2017-11-26 05:54] LABS: ANION GAP 15 (8-16); BLOOD UREA NITROGEN 46 mg/dl (7-20); CALCIUM 9.1 mg/dl (8.4-10.2); CARBON DIOXIDE 30 mmol/L (21-31); CHLORIDE 102 mmol/L (97-110); CREATININE 3.55 mg/dl (0.61-1.24); GLUCOSE 92 mg/dl (70-220); MAGNESIUM 1.9 mg/dl (1.7-2.5); PHOSPHORUS 3.7 mg/dl (2.5-4.9); POTASSIUM 4.4 mmol/L (3.5-5.1); SODIUM 143 mmol/L (135-144)
[2017-11-26] MEDS: PANTOPRAZOLE 40 MG INJ IV ×2 (06:23→15:23)
[2017-11-26] MEDS: traMADol 50 MG TAB GTB ×2 (08:32→15:22)
[2017-11-26] MEDS: MEROPENEM 500MG/50 ML (PMX) 50 ML IVPB (08:32)
[2017-11-26] MEDS: MIDODRINE 5 MG TAB PO ×3 (08:32→21:37)
[2017-11-26] MEDS: COLLAGENASE 30 GM TUBE TOP (08:33)
[2017-11-26] MEDS: MUPIROCIN 2% 22 GM OINT TOP ×2 (08:33→21:38)
[2017-11-26] MEDS: NYSTATIN 15 GM POWDER BTL TOP ×2 (08:33→21:38)
[2017-11-26] MEDS ORDERED: ALBUMIN HUMAN 25% 100 ML (10:09)
[2017-11-26] MEDS: ALBUMIN HUMAN 25% 100 ML IV ×2 (11:29→12:42)
[2017-11-26] MEDS: DIPHENHYDRAMINE 50 MG INJ INJ (15:22)
[2017-11-26] MEDS: ONDANSETRON 4 MG INJ IV (15:22)
[2017-11-26] MEDS: ACETAMINOPHEN 650MG/20.3ML CUP PO (15:23)
[2017-11-27] MEDS: ALBUTEROL HFA 8 GM INHALER INH ×3 (01:28→13:55)
[2017-11-27] MEDS: PANTOPRAZOLE 40 MG INJ IV ×2 (05:47→18:37)
[2017-11-27 06:16] LABS: ADD MAN DIFF? NO
[2017-11-27 06:26] LABS: WHITE BLOOD COUNT 11.8 10^3/ul (4.8-10.8)
[2017-11-27 06:26] LABS: ABNORMAL IP MESSAGE 1; BASOPHIL # 0.1 10^3/ul (0.0-0.1); BASOPHILS % 0.8 % (0.0-2.0); EOSINOPHILS # 2.1 10^3/ul (0.0-0.5); EOSINOPHILS % 17.3 % (0.0-7.0); HEMATOCRIT 29.3 % (42.0-52.0); HEMOGLOBIN 8.7 g/dl (14.0-18.0); LYMPHOCYTES # 1.4 10^3/ul (0.8-2.9); LYMPHOCYTES % 11.9 % (15.0-51.0); MEAN CORPUSCULAR HEMOGLOBIN 29.5 pg (29.0-33.0); MEAN CORPUSCULAR HGB CONC 29.7 g/dl (32.0-37.0); MEAN CORPUSCULAR VOLUME 99.3 fl (82.0-101.0); MEAN PLATELET VOLUME 11.4 fl (7.4-10.4); MONOCYTE # 0.7 10^3/ul (0.3-0.9); MONOCYTES % 5.7 % (0.0-11.0); NEUTROPHIL # 7.5 10^3/ul (1.6-7.5); NEUTROPHILS % 63.8 % (39.0-77.0); PLATELET COUNT 167 10^3/UL (140-415); POSITIVE DIFF @See below; RED BLOOD COUNT 2.95 10^6/ul (4.70-6.10); RED CELL DISTRIBUTION WIDTH 17.7 % (11.5-14.5)
[2017-11-27] MEDS: NYSTATIN 15 GM POWDER BTL TOP ×2 (08:29→21:02)
[2017-11-27] MEDS: MIDODRINE 5 MG TAB PO ×3 (08:29→20:59)
[2017-11-27] MEDS: MUPIROCIN 2% 22 GM OINT TOP ×2 (08:29→21:01)
[2017-11-27] MEDS: COLLAGENASE 30 GM TUBE TOP (08:30)
[2017-11-27] MEDS: EPOETIN ALFA 1,000 UNITS/0.1 ML VIAL SC (18:40)
[2017-11-28] MEDS: ALBUTEROL HFA 8 GM INHALER INH ×5 (02:00→19:37)
[2017-11-28 05:07] LABS: ADD MAN DIFF? NO
[2017-11-28 05:13] LABS: BASOPHIL # 0.1 10^3/ul (0.0-0.1); BASOPHILS % 0.7 % (0.0-2.0); EOSINOPHILS # 1.3 10^3/ul (0.0-0.5); EOSINOPHILS % 8.6 % (0.0-7.0); HEMATOCRIT 27.6 % (42.0-52.0); HEMOGLOBIN 8.2 g/dl (14.0-18.0); LYMPHOCYTES # 1.2 10^3/ul (0.8-2.9); LYMPHOCYTES % 8.1 % (15.0-51.0); MEAN CORPUSCULAR HEMOGLOBIN 29.4 pg (29.0-33.0); MEAN CORPUSCULAR HGB CONC 29.7 g/dl (32.0-37.0); MEAN CORPUSCULAR VOLUME 98.9 fl (82.0-101.0); MEAN PLATELET VOLUME 11.6 fl (7.4-10.4); MONOCYTE # 0.7 10^3/ul (0.3-0.9); MONOCYTES % 4.5 % (0.0-11.0); NEUTROPHIL # 11.7 10^3/ul (1.6-7.5); NEUTROPHILS % 77.6 % (39.0-77.0); PLATELET COUNT 178 10^3/UL (140-415); RED BLOOD COUNT 2.79 10^6/ul (4.70-6.10); RED CELL DISTRIBUTION WIDTH 17.6 % (11.5-14.5)
[2017-11-28 05:32] LABS: ANION GAP 15 (8-16); BLOOD UREA NITROGEN 42 mg/dl (7-20); CALCIUM 9.4 mg/dl (8.4-10.2); CARBON DIOXIDE 31 mmol/L (21-31); CHLORIDE 103 mmol/L (97-110); CREATININE 3.55 mg/dl (0.61-1.24); GLUCOSE 94 mg/dl (70-220); MAGNESIUM 2.2 mg/dl (1.7-2.5); PHOSPHORUS 3.8 mg/dl (2.5-4.9); POTASSIUM 4.3 mmol/L (3.5-5.1); SODIUM 145 mmol/L (135-144)
[2017-11-28] MEDS: PANTOPRAZOLE 40 MG INJ IV ×2 (06:34→17:03)
[2017-11-28] MEDS: MIDODRINE 5 MG TAB PO ×3 (09:21→21:40)
[2017-11-28] MEDS: NYSTATIN 15 GM POWDER BTL TOP ×2 (09:22→21:40)
[2017-11-28] MEDS: COLLAGENASE 30 GM TUBE TOP (09:23)
[2017-11-28] MEDS: MUPIROCIN 2% 22 GM OINT TOP ×2 (09:23→21:46)
[2017-11-28 11:18] LABS: INR 1.23; PROTIME 15.7 Sec (11.9-14.9); PT RATIO 1.2
[2017-11-28 11:19] LABS: PARTIAL THROMBOPLASTIN TIME 41.8 Sec (25.0-35.0)
[2017-11-28] MEDS: DIPHENHYDRAMINE 50 MG INJ INJ (17:13)
[2017-11-28] MEDS ORDERED: TOBRAMYCIN IV PER PHARMACY XX (18:30)
[2017-11-28] MEDS ORDERED: VANCOMYCIN IV PER PHARMACY XX (18:30)
[2017-11-28] MEDS: COLISTIMETHATE (25 MG/ML INHAL SYG) NEB (20:00)
[2017-11-28] MEDS: DIATR MEGLU/DIATRIZOATE SODIUM 120 ML BTL (20:15)
[2017-11-28] MEDS: ALBUMIN HUMAN 25% 100 ML IV (22:42)
[2017-11-29] MEDS: ALBUTEROL HFA 8 GM INHALER INH ×4 (01:19→19:25)
[2017-11-29] MEDS: VANCOMYCIN 1.25 GM in SOD CHLORIDE 0.9% 250 ML IVPB (02:37)
[2017-11-29 05:04] LABS: ADD MAN DIFF? NO
[2017-11-29 05:09] LABS: BASOPHIL # 0.1 10^3/ul (0.0-0.1); BASOPHILS % 0.7 % (0.0-2.0); EOSINOPHILS # 1.8 10^3/ul (0.0-0.5); EOSINOPHILS % 12.9 % (0.0-7.0); HEMATOCRIT 27.3 % (42.0-52.0); HEMOGLOBIN 8.1 g/dl (14.0-18.0); LYMPHOCYTES # 1.1 10^3/ul (0.8-2.9); LYMPHOCYTES % 8.4 % (15.0-51.0); MEAN CORPUSCULAR HEMOGLOBIN 29.1 pg (29.0-33.0); MEAN CORPUSCULAR HGB CONC 29.7 g/dl (32.0-37.0); MEAN CORPUSCULAR VOLUME 98.2 fl (82.0-101.0); MEAN PLATELET VOLUME 11.5 fl (7.4-10.4); MONOCYTE # 0.7 10^3/ul (0.3-0.9); MONOCYTES % 4.8 % (0.0-11.0); NEUTROPHIL # 9.9 10^3/ul (1.6-7.5); NEUTROPHILS % 72.8 % (39.0-77.0); PLATELET COUNT 163 10^3/UL (140-415); RED BLOOD COUNT 2.78 10^6/ul (4.70-6.10); RED CELL DISTRIBUTION WIDTH 17.5 % (11.5-14.5)
[2017-11-29 05:09] LABS: WHITE BLOOD COUNT 13.6 10^3/ul (4.8-10.8)
[2017-11-29 05:25] LABS: ANION GAP 16 (8-16); BLOOD UREA NITROGEN 26 mg/dl (7-20); CALCIUM 9.2 mg/dl (8.4-10.2); CARBON DIOXIDE 31 mmol/L (21-31); CHLORIDE 102 mmol/L (97-110); CREATININE 2.56 mg/dl (0.61-1.24); GLUCOSE 119 mg/dl (70-220); PHOSPHORUS 3.1 mg/dl (2.5-4.9); SODIUM 145 mmol/L (135-144)
[2017-11-29] MEDS: PANTOPRAZOLE 40 MG INJ IV ×2 (06:15→17:33)
[2017-11-29] MEDS: NYSTATIN 15 GM POWDER BTL TOP ×2 (08:41→21:11)
[2017-11-29] MEDS: MIDODRINE 5 MG TAB PO ×3 (08:41→21:11)
[2017-11-29] MEDS: MUPIROCIN 2% 22 GM OINT TOP ×2 (08:42→21:11)
[2017-11-29] MEDS: COLLAGENASE 30 GM TUBE TOP (08:42)
[2017-11-29] MEDS: COLISTIMETHATE (25 MG/ML INHAL SYG) NEB ×2 (09:40→19:24)
[2017-11-29] MEDS: DIPHENHYDRAMINE 50 MG INJ INJ (09:52)
[2017-11-29] MEDS: TOBRAMYCIN 80 MG in SOD CHLORIDE 0.9% 50 ML IVPB (10:29)
[2017-11-29] MEDS ORDERED: LIDOCAINE 1% (MDV) 10 ML INJ ×5 (12:32→13:37)
[2017-11-29] MEDS: LIDOCAINE 1% (MDV) 10 ML INJ (13:46)
[2017-11-29] MEDS: EPOETIN ALFA 1,000 UNITS/0.1 ML VIAL SC (17:33)
[2017-11-30] MEDS: ALBUTEROL HFA 8 GM INHALER INH ×4 (01:01→19:38)
[2017-11-30] MEDS: PANTOPRAZOLE 40 MG INJ IV ×2 (06:32→18:18)
[2017-11-30 06:52] LABS: ADD MAN DIFF? NO
[2017-11-30 07:00] LABS: WHITE BLOOD COUNT 10.1 10^3/ul (4.8-10.8)
[2017-11-30 07:00] LABS: BASOPHIL # 0.1 10^3/ul (0.0-0.1); BASOPHILS % 0.6 % (0.0-2.0); EOSINOPHILS # 1.6 10^3/ul (0.0-0.5); EOSINOPHILS % 16.1 % (0.0-7.0); HEMOGLOBIN 7.9 g/dl (14.0-18.0); LYMPHOCYTES % 9.7 % (15.0-51.0); MEAN CORPUSCULAR HEMOGLOBIN 29.6 pg (29.0-33.0); MEAN CORPUSCULAR HGB CONC 30.4 g/dl (32.0-37.0); MEAN CORPUSCULAR VOLUME 97.4 fl (82.0-101.0); MEAN PLATELET VOLUME 11.7 fl (7.4-10.4); MONOCYTE # 0.6 10^3/ul (0.3-0.9); MONOCYTES % 5.9 % (0.0-11.0); NEUTROPHIL # 6.8 10^3/ul (1.6-7.5); NEUTROPHILS % 67.2 % (39.0-77.0); PLATELET COUNT 154 10^3/UL (140-415); RED BLOOD COUNT 2.67 10^6/ul (4.70-6.10); RED CELL DISTRIBUTION WIDTH 17.2 % (11.5-14.5)
[2017-11-30 07:26] LABS: ALANINE AMINOTRANSFERASE 13 IU/L (13-69); ALBUMIN/GLOBULIN RATIO 0.73; ALKALINE PHOSPHATASE 100 IU/L (42-121); ANION GAP 15 (8-16); ASPARTATE AMINO TRANSFERASE 20 IU/L (15-46); BLOOD UREA NITROGEN 36 mg/dl (7-20); CARBON DIOXIDE 30 mmol/L (21-31); CHLORIDE 100 mmol/L (97-110); CREATININE 3.35 mg/dl (0.61-1.24); GLUCOSE 92 mg/dl (70-220); POTASSIUM 3.9 mmol/L (3.5-5.1); SODIUM 141 mmol/L (135-144); TOTAL PROTEIN 7.1 g/dl (6.1-8.1)
[2017-11-30 08:31] LABS: MAGNESIUM 2.1 mg/dl (1.7-2.5)
[2017-11-30 08:31] LABS: PHOSPHORUS 3.2 mg/dl (2.5-4.9)
[2017-11-30] MEDS: COLLAGENASE 30 GM TUBE TOP (09:06)
[2017-11-30] MEDS: MIDODRINE 5 MG TAB PO ×3 (09:06→22:01)
[2017-11-30] MEDS: MUPIROCIN 2% 22 GM OINT TOP ×2 (09:06→21:00)
[2017-11-30] MEDS: COLISTIMETHATE (25 MG/ML INHAL SYG) NEB ×2 (09:57→21:28)
[2017-11-30] MEDS: NYSTATIN 15 GM POWDER BTL TOP ×3 (10:00→15:33)
[2017-11-30] MEDS: ALBUMIN HUMAN 25% 100 ML IV (13:07)
[2017-11-30] MEDS ORDERED: NORepinephrine 4 MG INJ (23:18)
[2017-12-01] MEDS: ALBUTEROL HFA 8 GM INHALER INH ×4 (01:01→19:08)
[2017-12-01 05:25] LABS: ADD MAN DIFF? NO
[2017-12-01 05:30] LABS: WHITE BLOOD COUNT 8.5 10^3/ul (4.8-10.8)
[2017-12-01 05:30] LABS: BASOPHIL # 0.1 10^3/ul (0.0-0.1); BASOPHILS % 0.8 % (0.0-2.0); EOSINOPHILS # 1.5 10^3/ul (0.0-0.5); EOSINOPHILS % 17.4 % (0.0-7.0); HEMATOCRIT 26.9 % (42.0-52.0); HEMOGLOBIN 7.9 g/dl (14.0-18.0); MEAN CORPUSCULAR HEMOGLOBIN 28.3 pg (29.0-33.0); MEAN CORPUSCULAR HGB CONC 29.4 g/dl (32.0-37.0); MEAN CORPUSCULAR VOLUME 96.4 fl (82.0-101.0); MEAN PLATELET VOLUME 11.2 fl (7.4-10.4); MONOCYTE # 0.5 10^3/ul (0.3-0.9); MONOCYTES % 5.9 % (0.0-11.0); NEUTROPHIL # 5.4 10^3/ul (1.6-7.5); NEUTROPHILS % 63.4 % (39.0-77.0); PLATELET COUNT 164 10^3/UL (140-415); RED BLOOD COUNT 2.79 10^6/ul (4.70-6.10); RED CELL DISTRIBUTION WIDTH 16.9 % (11.5-14.5)
[2017-12-01] MEDS: PANTOPRAZOLE 40 MG INJ IV ×2 (05:55→18:11)
[2017-12-01] MEDS: DIPHENHYDRAMINE 50 MG INJ INJ (05:58)
[2017-12-01 05:59] LABS: ALANINE AMINOTRANSFERASE 10 IU/L (13-69); ALBUMIN 3.2 g/dl (3.3-4.9); ALBUMIN/GLOBULIN RATIO 0.84; ALKALINE PHOSPHATASE 93 IU/L (42-121); ANION GAP 17 (8-16); ASPARTATE AMINO TRANSFERASE 18 IU/L (15-46); BILIRUBIN,INDIRECT 0.1 mg/dl (0-1.1); BILIRUBIN,TOTAL 0.1 mg/dl (0.2-1.3); BLOOD UREA NITROGEN 29 mg/dl (7-20); CARBON DIOXIDE 30 mmol/L (21-31); CHLORIDE 100 mmol/L (97-110); CREATININE 3.01 mg/dl (0.61-1.24); GLUCOSE 100 mg/dl (70-220); POTASSIUM 3.8 mmol/L (3.5-5.1); SODIUM 143 mmol/L (135-144)
[2017-12-01 06:02] LABS: PHOSPHORUS 2.8 mg/dl (2.5-4.9)
[2017-12-01] MEDS: MIDODRINE 5 MG TAB PO ×3 (09:06→20:44)
[2017-12-01] MEDS: NYSTATIN 15 GM POWDER BTL TOP ×2 (09:06→20:44)
[2017-12-01] MEDS: COLLAGENASE 30 GM TUBE TOP (09:06)
[2017-12-01] MEDS: MUPIROCIN 2% 22 GM OINT TOP ×2 (09:08→20:44)
[2017-12-01] MEDS: COLISTIMETHATE (25 MG/ML INHAL SYG) NEB ×2 (09:28→19:09)
[2017-12-01] MEDS: TOBRAMYCIN 80 MG in SOD CHLORIDE 0.9% 50 ML IVPB (13:36)
[2017-12-02] MEDS: ALBUTEROL HFA 8 GM INHALER INH ×4 (01:00→20:16)
[2017-12-02 05:37] LABS: ADD MAN DIFF? NO
[2017-12-02 05:44] LABS: BASOPHIL # 0.1 10^3/ul (0.0-0.1); BASOPHILS % 0.8 % (0.0-2.0); EOSINOPHILS # 1.6 10^3/ul (0.0-0.5); EOSINOPHILS % 18.5 % (0.0-7.0); HEMATOCRIT 27.4 % (42.0-52.0); HEMOGLOBIN 8.3 g/dl (14.0-18.0); LYMPHOCYTES # 1.1 10^3/ul (0.8-2.9); LYMPHOCYTES % 12.9 % (15.0-51.0); MEAN CORPUSCULAR HGB CONC 30.3 g/dl (32.0-37.0); MEAN CORPUSCULAR VOLUME 95.8 fl (82.0-101.0); MONOCYTE # 0.6 10^3/ul (0.3-0.9); NEUTROPHILS % 60.2 % (39.0-77.0); PLATELET COUNT 167 10^3/UL (140-415); RED BLOOD COUNT 2.86 10^6/ul (4.70-6.10); RED CELL DISTRIBUTION WIDTH 17.1 % (11.5-14.5)
[2017-12-02 05:44] LABS: WHITE BLOOD COUNT 8.4 10^3/ul (4.8-10.8)
[2017-12-02 06:03] LABS: ANION GAP 16 (8-16); BLOOD UREA NITROGEN 37 mg/dl (7-20); CALCIUM 9.2 mg/dl (8.4-10.2); CARBON DIOXIDE 30 mmol/L (21-31); CHLORIDE 100 mmol/L (97-110); CREATININE 3.71 mg/dl (0.61-1.24); GLUCOSE 98 mg/dl (70-220); MAGNESIUM 2.1 mg/dl (1.7-2.5); PHOSPHORUS 3.3 mg/dl (2.5-4.9); SODIUM 142 mmol/L (135-144)
[2017-12-02] MEDS: PANTOPRAZOLE 40 MG INJ IV ×2 (06:33→17:16)
[2017-12-02] MEDS: COLISTIMETHATE (25 MG/ML INHAL SYG) NEB ×2 (08:43→20:18)
[2017-12-02] MEDS: MIDODRINE 5 MG TAB PO ×3 (08:47→21:00)
[2017-12-02] MEDS: COLLAGENASE 30 GM TUBE TOP (08:49)
[2017-12-02] MEDS: NYSTATIN 15 GM POWDER BTL TOP ×2 (08:49→21:00)
[2017-12-02] MEDS: MUPIROCIN 2% 22 GM OINT TOP ×2 (08:49→21:00)
[2017-12-02] MEDS: ALBUMIN HUMAN 25% 100 ML IV (10:36)
[2017-12-02] MEDS: TOBRAMYCIN 80 MG in SOD CHLORIDE 0.9% 50 ML IVPB (14:06)
[2017-12-02] MEDS: traMADol 50 MG TAB GTB (17:16)
[2017-12-02] MEDS: EPOETIN 10000 UNITS/1 ML INJ (ESRD) SC (17:19)
[2017-12-02] MEDS: VANCOMYCIN 1.25 GM in SOD CHLORIDE 0.9% 250 ML IVPB (23:16)
[2017-12-03] MEDS: ALBUTEROL HFA 8 GM INHALER INH ×4 (01:33→18:52)
[2017-12-03 05:51] LABS: ADD MAN DIFF? NO
[2017-12-03] MEDS: PANTOPRAZOLE 40 MG INJ IV ×2 (05:54→17:39)
[2017-12-03 05:58] LABS: WHITE BLOOD COUNT 8.8 10^3/ul (4.8-10.8)
[2017-12-03 05:58] LABS: BASOPHIL # 0.1 10^3/ul (0.0-0.1); BASOPHILS % 1.4 % (0.0-2.0); EOSINOPHILS # 1.9 10^3/ul (0.0-0.5); HEMATOCRIT 26.9 % (42.0-52.0); LYMPHOCYTES # 1.2 10^3/ul (0.8-2.9); LYMPHOCYTES % 13.2 % (15.0-51.0); MEAN CORPUSCULAR HEMOGLOBIN 29.2 pg (29.0-33.0); MEAN CORPUSCULAR HGB CONC 29.7 g/dl (32.0-37.0); MEAN CORPUSCULAR VOLUME 98.2 fl (82.0-101.0); MONOCYTE # 0.7 10^3/ul (0.3-0.9); MONOCYTES % 7.7 % (0.0-11.0); NEUTROPHIL # 4.9 10^3/ul (1.6-7.5); NEUTROPHILS % 55.8 % (39.0-77.0); PLATELET COUNT 164 10^3/UL (140-415); RED BLOOD COUNT 2.74 10^6/ul (4.70-6.10); RED CELL DISTRIBUTION WIDTH 17.2 % (11.5-14.5)
[2017-12-03 06:24] LABS: EOSINOPHILS % 21.4 % (0.0-7.0)
[2017-12-03 06:27] LABS: ANION GAP 14 (8-16); BLOOD UREA NITROGEN 29 mg/dl (7-20); CALCIUM 9.3 mg/dl (8.4-10.2); CARBON DIOXIDE 33 mmol/L (21-31); CHLORIDE 101 mmol/L (97-110); CREATININE 2.91 mg/dl (0.61-1.24); GLUCOSE 86 mg/dl (70-220); PHOSPHORUS 3.1 mg/dl (2.5-4.9); POTASSIUM 3.9 mmol/L (3.5-5.1); SODIUM 144 mmol/L (135-144)
[2017-12-03] MEDS: MIDODRINE 5 MG TAB PO ×2 (08:55→13:42)
[2017-12-03] MEDS: MUPIROCIN 2% 22 GM OINT TOP (08:56)
[2017-12-03] MEDS: NYSTATIN 15 GM POWDER BTL TOP (08:56)
[2017-12-03] MEDS: COLLAGENASE 30 GM TUBE TOP (08:57)
[2017-12-03] MEDS: COLISTIMETHATE (25 MG/ML INHAL SYG) NEB ×2 (09:48→18:52)
== END 2017-12-03 19:09 | DRG 870 ==
LOC: ICU 18:02
PROC: 30233N1 Transfusion of Nonautologous Red Blood Cells into Peripheral Vein, Percutaneous Approach (ICD-10-PCS; 2017-11-12 13:30)
PROC: 0DJD8ZZ Inspection of Lower Intestinal Tract, Via Natural or Artificial Opening Endoscopic (ICD-10-PCS; 2017-11-12 13:30)
PROC: 0DJ08ZZ Inspection of Upper Intestinal Tract, Via Natural or Artificial Opening Endoscopic (ICD-10-PCS; 2017-11-12 13:30)
PROC: 5A1955Z Respiratory Ventilation, Greater than 96 Consecutive Hours (ICD-10-PCS; principal; 2017-11-12 14:00)
PROC: 04HY32Z Insertion of Monitoring Device into Lower Artery, Percutaneous Approach (ICD-10-PCS; 2017-11-12 14:00)
PROC: 4A133B1 Monitoring of Arterial Pressure, Peripheral, Percutaneous Approach (ICD-10-PCS; 2017-11-12 14:00)
PROC: 5A1D70Z Performance of Urinary Filtration, Intermittent, Less than 6 Hours Per Day (ICD-10-PCS; 2017-11-12 14:00)
PROC: 30233N1 Transfusion of Nonautologous Red Blood Cells into Peripheral Vein, Percutaneous Approach (ICD-10-PCS; 2017-11-12 14:00)
PROC: 0W9G3ZZ Drainage of Peritoneal Cavity, Percutaneous Approach (ICD-10-PCS; 2017-11-12 14:00)
DX: A41.9 Sepsis, unspecified organism (principal); R57.1 Hypovolemic shock; L89.154 Pressure ulcer of sacral region, stage 4; N18.6 End stage renal disease; G92 Toxic encephalopathy; J18.9 Pneumonia, unspecified organism; J96.21 Acute and chronic respiratory failure with hypoxia; R65.21 Severe sepsis with septic shock; K92.2 Gastrointestinal hemorrhage, unspecified; D68.32 Hemorrhagic disorder due to extrinsic circulating anticoagulants; Z99.11 Dependence on respirator [ventilator] status; I13.2 Hypertensive heart and chronic kidney disease with heart failure and with stage 5 chronic kidney disease, or end stage renal disease; I50.32 Chronic diastolic (congestive) heart failure; D68.0 Von Willebrand disease; R57.9 Shock, unspecified; K92.1 Melena; R18.8 Other ascites; Q27.33 Arteriovenous malformation of digestive system vessel; B96.5 Pseudomonas (aeruginosa) (mallei) (pseudomallei) as the cause of diseases classified elsewhere; D63.1 Anemia in chronic kidney disease; D69.6 Thrombocytopenia, unspecified; E11.22 Type 2 diabetes mellitus with diabetic chronic kidney disease; I25.10 Atherosclerotic heart disease of native coronary artery without angina pectoris; I48.2 Chronic atrial fibrillation; I73.9 Peripheral vascular disease, unspecified; J84.10 Pulmonary fibrosis, unspecified; K64.4 Residual hemorrhoidal skin tags; K63.5 Polyp of colon; R13.10 Dysphagia, unspecified; T45.515A Adverse effect of anticoagulants, initial encounter; Z16.12 Extended spectrum beta lactamase (ESBL) resistance; Z93.0 Tracheostomy status; Z99.2 Dependence on renal dialysis; Z95.2 Presence of prosthetic heart valve; Z95.0 Presence of cardiac pacemaker; Z95.1 Presence of aortocoronary bypass graft; Z87.891 Personal history of nicotine dependence; Z93.1 Gastrostomy status
CPT/HCPCS: 36430; 36600; 71045; 74018; 80048; 80053; 80202; 82533; 82728; 82803; 82962; 83540; 83605; 83735; 84100; 84145; 85014; 85018; 85025; 85610; 85730; 86706; 86850; 86900; 86901; 86920; 87040; 87070; 87075; 87081; 87340; 90935; 94002; 94003; 94640; 94664